=== PATIENT | female | born 1995 | race Caucasian/White ===

== ENCOUNTER → 2019-12-11 09:38 | Outpatient (BNVA) | payer OTHER, SELFPAY | PROVIDERS: PCP Internal Medicine; Referring Provider Internal Medicine; Visit Provider Advanced Practice Midwife | DX: Z76.89 Persons encountering health services in other specified circumstances (principal) ==

== ENCOUNTER 2020-01-23 09:34 | Outpatient (REF) | payer OTHER, SELFPAY | END 2020-01-23 09:35 | disposition home or self-care (01) | LOC: HO.LAB 09:34 | PROVIDERS: Visit Provider Advanced Practice Midwife | DX: Z39.2 Encounter for routine postpartum follow-up (principal); R10.9 Unspecified abdominal pain; Z30.09 Encounter for other general counseling and advice on contraception | CPT/HCPCS: 87086; 99212 ==

== ENCOUNTER → 2020-12-08 11:08 | Outpatient (BNVA) | payer OTHER, SELFPAY | PROVIDERS: Visit Provider Advanced Practice Midwife ==

== ENCOUNTER → 2021-01-05 14:28 | Outpatient (BNVA) | payer OTHER, SELFPAY | PROVIDERS: Visit Provider Advanced Practice Midwife | DX: Z30.017 Encounter for initial prescription of implantable subdermal contraceptive (principal) | CPT/HCPCS: 11981; 81025 ==

== ENCOUNTER 2021-03-07 11:07 | Emergency (ER) | payer OTHER, SELFPAY ==
[2021-03-07 11:31] VITALS: BP 94/61; PULSE 74; RESP 18; TEMP 36.2; O2SAT 95; BMI 31.8
== END 2021-03-07 15:36 | disposition left against medical advice (07) ==
PROVIDERS: Emergency Provider Emergency Medicine; PCP Internal Medicine
DX: M25.511 Pain in right shoulder (principal)
CPT/HCPCS: 99281; 99282

== ENCOUNTER → 2021-03-19 13:48 | Outpatient (BNVA) | payer OTHER, SELFPAY | PROVIDERS: PCP Internal Medicine; Visit Provider Advanced Practice Midwife | DX: Z30.40 Encounter for surveillance of contraceptives, unspecified (principal) | CPT/HCPCS: 99212 ==

== ENCOUNTER 2021-06-03 14:38 | Emergency (ER) | payer OTHER, SELFPAY ==
--- NOTE | ~2021-06-03 | CT_ITS ---
EXAMINATION: CT HEAD WITHOUT CONTRAST CLINICAL INFORMATION: Loss of consciousness, syncopal episode. COMPARISON: CT brain dated from 12/20/2011. TECHNIQUE: Contiguous axial imaging was performed from the skull base to vertex without intravenous administration of contrast. This CT examination was performed using dose optimization techniques as appropriate, variously including the following: *Automated exposure control *Adjustment of mA and/or kV according to patient size (this includes techniques or standardized protocols for targeted exams where dose is matched to indication/reason for exam; i.e. extremities or head) *Use of iterative reconstruction technique DLP: 587 mGy-cm FINDINGS: There is no evidence of acute intracranial hemorrhage or territorial infarction. No abnormal mass effect or midline shift is seen. Morgan to white matter differentiation is well preserved. No extra-axial fluid collections are identified. The ventricles are normal in size. There is no abnormal attenuation within the brain parenchyma. The osseous structures and soft tissues are normal. The mastoid air cells and visualized portions of the paranasal sinuses are well aerated. CT/CT head/brain wo con IMPRESSION: No acute intracranial pathology.
--- NOTE | ~2021-06-03 | XR_ITS ---
EXAMINATION: XR CHEST CLINICAL INFORMATION: Syncope COMPARISON: None TECHNIQUE: Frontal view of the chest was obtained. FINDINGS: No significant abnormality is noted involving the heart, lungs, mediastinum, bony thorax or soft tissues. XR/XR chest 1V IMPRESSION: Unremarkable chest examination.
[2021-06-03 15:46] VITALS: BP 118/64; PULSE 110; RESP 18; TEMP 37.1; O2SAT 97; BMI 30.8
--- NOTE | 2021-06-03 15:52 | ECG_ITS ---
Test Reason : syncope Blood Pressure : / mmHG Vent. Rate : 104 BPM Atrial Rate : 104 BPM P-R Int : 146 ms QRS Dur : 080 ms QT Int : 312 ms P-R-T Axes : 051 043 030 degrees QTc Int : 410 ms Sinus tachycardia Nonspecific ST and T wave abnormality Borderline ECG When compared with ECG of 13-MAY-2014 09:55, Nonspecific ST and T wave abnormality present Referred By: Generic ED Physician Electronically Signed By:VALE DAVENPORT
[2021-06-03 16:29] LABS: MANUAL DIFF FLAG NO
[2021-06-03 16:32] LABS: Basophils Percent Auto 0.3 % (0-2); Eosinophils Percent Auto 0.3 % (0-4); Hematocrit 41.7 % (37.0-47.0); Hemoglobin 14.1 g/dl (12.0-16.0); Imm Gran Abs Auto 0.03 X10*3/uL (0.00-0.03); Imm Gran Pct Auto 0.5 % (0.0-0.4); Lymphocytes Absolute Auto 0.5 X10*3/uL (1.2-4.9); Lymphocytes Percent Auto 7.9 % (20-40); Mean Corpuscular HGB Conc 33.8 g/dl (31.0-35.0); Mean Corpuscular Hemoglobin 30.5 pg (27.0-33.0); Mean Corpuscular Volume 90.3 fL (80.0-98.0); Mean Platelet Volume 10.7 fL (9.4-12.3); Monocytes Absolute Auto 0.6 X10*3/uL (0.1-1.2); Monocytes Percent Auto 9.4 % (2-11); Neutrophils Percent Auto 81.6 % (45-73); Platelet Count 241 X10*3/uL (160-400); Red Blood Count 4.62 X10*6/uL (4.20-5.50); Red Cell Distribution Width 13.7 % (11.0-16.0); White Blood Count 6.1 X10*3/uL (4.8-10.8)
[2021-06-03 16:48] LABS: Anion Gap 14 (12-20); Blood Urea Nitrogen 8 mg/dL (9-16); Calcium 9.4 mg/dL (8.4-10.2); Carbon Dioxide 23 mmol/L (22-29); Chloride 105 mmol/L (96-108); Creatinine Clr Calc Pharmacy 105.7; Estimated Glomerular Filt Rate > 60; Glucose Random 102 mg/dL (60-115); Sodium 138 mmol/L (135-145)
[2021-06-03 16:55] LABS: Troponin-I High Sensitivity < 3.5 ng/L (<3.5-17.0)
[2021-06-03 17:09] LABS: COVID-19 Test Negative (Negative); Influenza A Positive (Negative); Influenza B2 Negative (Negative)
--- NOTE | 2021-06-03 17:57 | ED_ITS ---
HPI - General Adult General Chief complaint: General Medical Stated complaint: Fever/Syncope Time Seen by Provider: 06/03/21 17:57 Source: patient Mode of arrival: ambulatory Limitations: no limitations History of Present Illness HPI narrative: This is a 26-year-old female presenting to the emergency department with fever, ear pain, syncopal episode, headache, malaise x3 days worsening. Patient tells me that her left ear has been bothering her. She has had a fever at home of 102 degrees F well controlled with Tylenol. She also reports that she had a syncopal episode with loss of consciousness and head strike today at work. She also reports generalized malaise. She tells me that she is experiencing a se carlos headache that does not feel like her typical headache. She tells me she has never had syncopal episodes before. She has had both her COVID and flu vaccine. She denies chest pain, shortness of breath, calf pain, leg swelling, nausea, vomiting, abdominal pain, neck pain, photophobia, vision changes, dizziness. Onset (ago): day(s) (3) Location: head Relieving factors: none Exacerbating factors: none Associated symptoms: denies other symptoms Treatments prior to arrival: other (Tylenol ) Related Data Home Medications Medication Instructions Recorded Confirmed etonogestrel 68 mg subdermal implant SUBDERMAL 03/19/21 implant (Nexplanon) Allergies Allergy/AdvReac Type Severity Reaction Status Date / Time No Known Allergies Allergy Verified 06/03/21 15:46 Review of Systems Review of Systems: Constitutional : No Weight loss, + Fever, + Chills, + Fati flavio, + Malaise ENT/Mouth : No sore throat, No Rhinorrhea, + L. ear pain Eyes: No Eye Pain, No Swelling, No Redness Cardiovascular : No Chest Pain, No SOB, No Dyspnea on Exertion, No Orthopnea, No Edema, No Palpitations Respiratory : No Cough, No Sputum, No Wheezing Gastrointestinal : No Nausea, No Vomiting, No Diarrhea, No Constipation, No abdominal Pain, No Hematochezia, No Melena Genitourinary : No Dysuria, No Urinary Frequency, No Hematuria, Musculoskeletal : No joint pain, No Myalgias, No Joint Swelling Skin : No Skin Lesions, No rash Neuro : No Weakness, No Numbness, No Dizziness, + Headache Psych : No Anxiety/Panic, No Depression All other systems reviewed and are negative Yes all other systems are reviewed and are negative [facility] Past Medical History Attestation statement: The following information was validated with the patient. Source: old records reviewed and nursing notes reviewed Medical History (Updated 06/03/21 @ 18:04 by NICK Patel) Anxiety Deaf Ear infection Febrile seizures Iron deficiency anemia Obesity (BMI 30.0-34.9) Surgical History No history of previous surgery Family History Family History Paternal Grandmother Diabetes mellitus HTN (hypertension) CVD (cardiovascular disease) Maternal Grandmother Diabetes mellitus HTN (hypertension) Skin cancer Father Diabetes mellitus HTN (hypertension) Maternal Aunt Diabetes mellitus HTN (hypertension) Social History Social History Housing: Apartment Alcohol intake: never Patient Tobacco Use Status: Former Tobacco user Tobacco use type: Cigarette e-Cigarette/Vaping Use: Never Used Second Hand Smoke Exposure: No Advance Directives: No Advance Directives Information Provided: No Patient : No service: No Current occupational status: employed Current occupational exposures/hazards: No Gender identity: Female Physical Exam ED Vital Signs: Vital Signs - 24 hr 06/03/21 15:46 06/03/21 19:17 06/03/21 19:18 Temperature 98.7 F Pulse Rate 110 H 92 97 Respiratory Rate 18 Blood Pressure 118/64 103/61 114/71 Pulse Oximetry 97 06/03/21 19:19 Temperature Pulse Rate 97 Respiratory Rate Blood Pressure 116/72 Pulse Oximetry BMI result Body Mass Index 30.8 VSS Appearance: Alert.? Oriented X3.? No acute distress.? Head: Normocephalic, atraumatic, no step-offs or deformities Eyes: Pupils equal, round and reactive to light.? ENT: Pharynx normal.? Bilateral tympanic membranes pearly white, normal landmarks. No effusions, edema. No pain with manipulation of external ear. Neck: Normal inspection.? Neck supple.? CVS: Normal heart rate and rhythm.? Pulses normal.? Respiratory: No respiratory distress.? Breath sounds normal.? Abdomen: Soft and nontender.? Skin: Skin warm and dry.? Normal skin color.? Normal skin turgor.? Extremities: No lower extremity edema.? No calf ttp. 5/5 strength to bilateral upper and lower extremities Back: No midline tenderness, no C-spine tenderness, full range of motion, no CVA tenderness bilaterally Neuro: Oriented X 3.? No motor deficit.? No sensory deficit. CN 2-12 intact. No small [id number], [id number], normal tandem gait with normal coordination. Negative pr negative Brudzinski, no meningeal signs present. Course Reevaluation(s) Reevaluation #1: Patient's CBC within normal limits. Chemistry with no acute electrolyte abnormalities. Troponin negative. EKG nonischemic, unlikely ACS. COVID negative. Influenza A positive. Chest x-ray within normal limits no evidence of pneumonia or viral processes occurring. Time: 18:02 Reevaluation #2: Patient had CT within normal limits. Patient has been hydrated with IV fluids. She has been in good spirits. No syncopal episodes. She is afebrile. At this time patient will be discharged home patient's symptoms likely secondary to influenza. At this time patient will be discharged with strict return precautions. Advised her to return with new or worrisome signs and symptoms. Time: 19:[address] [facility] Narrative Medical decision making narrative: 1800 26-year-old female presenting with flu-like symptoms, headache that doesnt feel like her typical X3 days and a syncopal episode today. Physical examination benign. Vital signs stable patient is afebrile however she did take Tylenol prior to her arrival. Neuro nonfocal. Cerebellar function intact unlikely posterior stroke. No meningeal signs unlikely meningitis. Plan at this time is labs, orthostatic vital signs, urine, fluids, EKG, chest x- ray, head CT Will rule out COVID, influenza, pneumonia, dysrhythmias, electrolyte abnormalities. ICH/masses. Medical Records Medical records reviewed: Yes I reviewed the patient's medical records. Lab Data Lab results reviewed: Yes I reviewed the patient's lab results. Result diagrams: 06/03/21 16:24 06/03/21 16:24 Labs: Lab Results 06/03/21 06/03/21 06/03/21 Range/Units 16:24 16:24 16:24 WBC 6.1 (4.8-10.8) X10*3/uL RBC 4.62 (4.20-5.50) X10*6/uL Hgb 14.1 (12.0-16.0) g/dl Hct 41.7 (37.0-47.0) % MCV 90.3 (80.0-98.0) fL MCH 30.5 (27.0-33.0) pg MCHC 33.8 (31.0-35.0) g/dl RDW 13.7 (11.0-16.0) % Plt Count 241 (160-400) X10*3/uL MPV 10.7 (9.4-12.3) fL Immature Gran % (Auto) 0.5 H (0.0-0.4) % Neut % (Auto) 81.6 H (45-73) % Lymph % (Auto) 7.9 L (20-40) % Hudspeth % (Auto) 9.4 (2-11) % Eos % (Auto) 0.3 (0-4) % Baso % (Auto) 0.3 (0-2) % Lymph # (Auto) 0.5 L (1.2-4.9) X10*3/uL Hudspeth # (Auto) 0.6 (0.1-1.2) X10*3/uL Eos # (Auto) 0.0 (0.0-0.4) X10*3/uL Baso # (Auto) 0.0 (0.0-0.2) X10*3/uL Abs Immat Gran (auto) 0.03 (0.00-0.03) X10*3/uL Absolute Neuts (auto) 5.0 (2.0-8.3) x10*3/uL Absolute Nucleated RBC 0.000 (0.0-0.012) X10*3/uL Nucleated RBC % (auto) 0.0 (0.0-0.2) /100WBC Sodium 138 (135-145) mmol/L Potassium 4.0 (3.3-5.1) mmol/L Chloride 105 (96-108) mmol/L Carbon Dioxide 23 (22-29) mmol/L Anion Gap 14 (12-20) BUN 8 L (9-16) mg/dL Creatinine 0.81 (0.5-1.4) mg/dL Estim Creat Clear Calc 105.7 Estimated GFR > 60 Random Glucose 102 (60-115) mg/dL Calcium 9.4 (8.4-10.2) mg/dL Troponin I High Sens < 3.5 (<3.5-17.0) ng/L COVID-19 ([facility]) (Negative) COVID-19 Clin Com Influenza Type A ([facility]) (Negative) Influenza Type B ([facility]) (Negative) Influenza A & B Note 06/03/21 06/03/21 Range/Units 16:24 16:24 WBC (4.8-10.8) X10*3/uL RBC (4.20-5.50) X10*6/uL Hgb (12.0-16.0) g/dl Hct (37.0-47.0) % MCV (80.0-98.0) fL MCH (27.0-33.0) pg MCHC (31.0-35.0) g/dl RDW (11.0-16.0) % Plt Count (160-400) X10*3/uL MPV (9.4-12.3) fL Immature Gran % (Auto) (0.0-0.4) % Neut % (Auto) (45-73) % Lymph % (Auto) (20-40) % Hudspeth % (Auto) (2-11) % Eos % (Auto) (0-4) % Baso % (Auto) (0-2) % Lymph # (Auto) (1.2-4.9) X10*3/uL Hudspeth # (Auto) (0.1-1.2) X10*3/uL Eos # (Auto) (0.0-0.4) X10*3/uL Baso # (Auto) (0.0-0.2) X10*3/uL Abs Immat Gran (auto) (0.00-0.03) X10*3/uL Absolute Neuts (auto) (2.0-8.3) x10*3/uL Absolute Nucleated RBC (0.0-0.012) X10*3/uL Nucleated RBC % (auto) (0.0-0.2) /100WBC Sodium (135-145) mmol/L Potassium (3.3-5.1) mmol/L Chloride (96-108) mmol/L Carbon Dioxide (22-29) mmol/L Anion Gap (12-20) BUN (9-16) mg/dL Creatinine (0.5-1.4) mg/dL Estim Creat Clear Calc Estimated GFR Random Glucose (60-115) mg/dL Calcium (8.4-10.2) mg/dL Troponin I High Sens (<3.5-17.0) ng/L COVID-19 ([facility]) Negative (Negative) COVID-19 Clin Com See Note Influenza Type A ([facility]) Positive A (Negative) Influenza Type B ([facility]) Negative (Negative) Influenza A & B Note See Note ECG Data Attestation: I personally reviewed and interpreted this ECG as follows: Prior ECG tracings: not available for review Interpretation: Ventricular rate of 104, DC normal, QRS normal, QT/QTC normal. EKG shows sinus tachycardia no ST elevations or inversions. No signs of acute ischemia. No previous to compare with. Critical Care Time Critical Care Time Critical Care Time: No Discharge Plan Discharge Clinical Impression: Influenza A, Syncope Patient Disposition: Home, Self-Care Instructions: Syncope (ED), Influenza (ED) Additional Instructions: Take your medications as prescribed. If you were prescribed antibiotics today, it is important that you take your medication to their entirety, do not skip any doses, do not finish them early. Follow-up with your primary care provider this week. Return to the emergency department with new or worsening symptoms. Such as fevers, chills, chest pain, shortness of breath, nausea, vomiting, dizziness, headache, vision changes, lethargy In case of emergency call 911 Take ibuprofen every 6 hours, Tylenol every 4 as needed for body aches, fevers or pains. Prescriptions: No Action Nexplanon 68 mg implant subdermal 0RF Referrals: Marizol Reilly MD [Primary Care Provider] - 2 days Stand Alone Forms: Work/School Release
[2021-06-03] MEDS: 0.9 % Sodium Chloride 1,000 ML 999 ML IV (19:12)
[2021-06-03 19:17] VITALS: BP 103/61; PULSE 92
[2021-06-03 19:18] VITALS: BP 114/71; PULSE 97
[2021-06-03 19:19] VITALS: BP 116/72; PULSE 97
[2021-06-03 20:28] LABS: Appearance Urine CLEAR; Color Urine YELLOW; Glucose Urine UA NEG (NEG); Leukocyte Esterase Urine NEG (NEG); Nitrite Urine NEG (NEG); PH 5.5 (5.0-8.0); Specific Gravity - Urine >= 1.030 (1.005-1.025); UACC Culture Trigger NO; Urine Blood 1+ (NEG); Urine Ketones NEG (NEG); Urine Protein NEG (NEG-TRACE)
[2021-06-03 20:37] LABS: Bacteria Urine TRACE /LPF; Squamous Epithelial Cell Urine TRACE /LPF; WBC Urine 0 /HPF (0-4)
== END 2021-06-03 20:40 | disposition home or self-care (01) ==
PROVIDERS: Physician Assistant; Emergency Provider Internal Medicine; PCP Internal Medicine
DX: J11.1 Influenza due to unidentified influenza virus with other respiratory manifestations (principal); R55 Syncope and collapse; Z20.822 Contact with and (suspected) exposure to COVID-19; R51.9 Headache, unspecified
CPT/HCPCS: 36415; 70450; 71045; 80048; 81001; 84484; 85025; 87502; 87635; 93005; 96360; 99284

== ENCOUNTER 2021-08-18 10:18 | Outpatient (REF) | payer OTHER, SELFPAY ==
[2021-08-18 15:59] LABS: CT PCR NOT DETECTED (Not Detect.); NG PCR NOT DETECTED (Not Detect.)
[2021-08-19 08:22] LABS: BV Int Neg Control Negative (Negative); BV Int Pos Control Positive (Positive)
== END 2021-08-18 10:19 | disposition home or self-care (01) ==
LOC: HO.LAB 10:18
PROVIDERS: Visit Provider Advanced Practice Midwife
DX: Z01.419 Encounter for gynecological examination (general) (routine) without abnormal findings (principal); Z11.3 Encounter for screening for infections with a predominantly sexual mode of transmission
CPT/HCPCS: 87480; 87491; 87510; 87591; 87660; 88142

== ENCOUNTER 2021-10-25 16:10 | Outpatient (REF) | payer OTHER, SELFPAY ==
[2021-10-26 13:20] LABS: H Pylori Breath Test Negative (Negative)
== END 2021-10-25 16:11 | disposition home or self-care (01) ==
LOC: HO.LNP 16:10
PROVIDERS: Visit Provider Physician Assistant
DX: A04.8 Other specified bacterial intestinal infections (principal); R10.9 Unspecified abdominal pain; R11.2 Nausea with vomiting, unspecified; K58.9 Irritable bowel syndrome, unspecified
CPT/HCPCS: 83013; 99202; 99212

== ENCOUNTER → 2021-12-06 14:08 | Outpatient (BNVA) | payer OTHER, SELFPAY | PROVIDERS: PCP Internal Medicine; Referring Provider Internal Medicine; Visit Provider Physician Assistant | DX: K58.9 Irritable bowel syndrome, unspecified (principal); R19.7 Diarrhea, unspecified | CPT/HCPCS: 99212 ==

== ENCOUNTER 2022-01-20 08:15 | Outpatient (REF) | payer OTHER, SELFPAY ==
--- NOTE | ~2022-01-20 | US_ITS ---
EXAMINATION: US ABDOMEN COMPLETE CLINICAL INFORMATION: Irritable bowel syndrome without diarrhea. COMPARISON: CT abdomen and pelvis 07/27/2013. TECHNIQUE: Real-time imaging of the abdominal viscera. FINDINGS: PANCREAS: Normal. ABDOMINAL AORTA: The proximal, mid, and distal segments are normal in caliber. INFERIOR VENA CAVA: Visualized portions are normal. LIVER: The liver is normal in size. The liver contour is normal. Liver echotexture is increased. No focal hepatic lesion. There is no intrahepatic biliary duct dilatation seen. GALLBLADDER: Normal. The gallbladder is physiologically distended without evidence of stones, sludge, polyps, wall thickening or pericholecystic fluid. COMMON BILE DUCT: Normal in caliber measuring 0.4 cm in diameter. RIGHT KIDNEY: Normal. No hydronephrosis. No renal calculi or focal parenchymal lesions. The kidney measures 10.3 cm in maximum dimension. LEFT KIDNEY: Normal. No hydronephrosis. No renal calculi or focal parenchymal lesions. The kidney measures 10.3 cm in maximum dimension. SPLEEN: Normal. The spleen measures 8.9 cm in maximum dimension. FREE FLUID: None. US/US abdomen complete IMPRESSION: Echogenic liver probably represent fatty infiltration.
== END 2022-01-20 08:16 | disposition home or self-care (01) ==
LOC: HO.US 08:15
PROVIDERS: Visit Provider Physician Assistant
DX: R10.9 Unspecified abdominal pain (principal); K58.9 Irritable bowel syndrome, unspecified
CPT/HCPCS: 76700

== ENCOUNTER 2022-05-29 14:39 | Emergency (ER) | payer OTHER, SELFPAY ==
--- NOTE | ~2022-05-29 | XR_ITS ---
EXAMINATION: XR WRIST, RIGHT XR HAND, RIGHT CLINICAL INFORMATION: Wrist pain, heard a pop. COMPARISON: Radiograph of the right hand 07/17/2016. TECHNIQUE: PA, lateral, and oblique views of the right wrist and PA, lateral, and oblique views of the right hand FINDINGS: RIGHT WRIST: The bones and soft tissues are normal. No fracture. Alignment is anatomic. Joint spaces are maintained. No erosions or soft tissue calcifications. RIGHT HAND: The bones and soft tissues are normal. No fracture. Alignment is anatomic. Joint spaces are maintained. No erosions or soft tissue calcifications. XR/XR hand wrist RT IMPRESSION: Normal right hand and wrist. If symptoms persist, consider an interval radiograph or correlation with an MRI, as early nondisplaced fractures and ligamentous injuries can be radiographically occult.
[2022-05-29 15:48] VITALS: BP 151/75; PULSE 72; RESP 15; TEMP 36.8; O2SAT 100; BMI 31.9
--- NOTE | 2022-05-29 15:52 | ED.GENADULT ---
HPI - General Adult General Chief complaint: Extremity Injury, Upper <NICK Arriaza - Last Filed: 05/30/22 11:58> Stated complaint: R wrist pain <NICK Arriaza - Last Filed: 05/30/22 11:58> Time Seen by Provider: 05/29/22 17:51 <NICK Arriaza - Last Filed: 05/30/22 11:58> Source: patient <NICK Junior - Last Filed: 05/29/22 18:19> Mode of arrival: ambulatory <NICK Junior - Last Filed: 05/29/22 18:19> Limitations: no limitations <NICK Junior Last Filed: 05/29/22 18:19> History of Present Illness HPI narrative: 27-year-old female who works at a [employer] is presenting to the ER with complaints of right wrist pain after she was reaching for a pencil today and heard a pop and she has been having like a shooting pain. Reports it is worse when she bends her wrist upper down. Feels like her strength has decreased. Otherwise she denies any dizziness, headaches, neck pain/stiffness, paresthesias, recent falls or trauma, extremity edema, chest pain or shortness of breath, dyspnea on exertion, rashes or any other symptoms complaints or concerns at this time. <NICK Junior - Last Filed: 05/29/22 18:19> MD complaint: Right wrist pain <NICK Junior - Last Filed: 05/29/22 18:19> Onset (ago): day(s) (Yesterday) <NICK Junior Last Filed: 05/29/22 18:19> Related Data Home medications: Home Medications Medication Instructions Recorded Confirmed etonogestrel 68 mg subdermal implant subdermal 03/19/21 10/06/21 implant (Nexplanon) Previous Rx's Medication Instructions Recorded methylcellulose (laxative) 500 mg 500 mg PO TID #90 tabs 10/25/21 tablet (Citrucel) loperamide 2 mg capsule (Imodium 2 mg PO Q6H PRN loose stool #30 12/06/21 A-D) caps pantoprazole 40 mg tablet,delayed 40 mg PO DAILY 30 days #30 tabs 12/06/21 release acetaminophen 300 mg-codeine 30 mg 1 tab PO Q8H PRN pain #14 tabs 05/29/22 tablet ibuprofen 800 mg tablet 800 mg PO Q8H PRN pain #14 tabs 05/29/22 prednisone 20 mg tablet 40 mg PO DAILY inflammation 5 days 05/29/22 #10 tabs <NICK Arriaza - Last Filed: 05/30/22 11:58> Allergies/adverse reactions: Allergies Allergy/AdvReac Type Severity Reaction Status Date / Time No Known Allergies Allergy Verified 12/06/21 14:14 <NICK Arriaza - Last Filed: 05/30/22 11:58> Review of Systems Review of Systems: Constitutional : No Weight loss, No Fever, No Chills, No Night Sweats, No Fatigue, No Malaise ENT/Mouth : No Hearing loss, No Ear Pain, No Nasal Congestion, No Sinus Pain, No Hoarseness, No sore throat, No Rhinorrhea, No Swallowing Difficulty Eyes: No Eye Pain, No Swelling, No Redness, No Foreign Body, No Discharge, No Vision Changes Cardiovascular : No Chest Pain, No SOB, No Dyspnea on Exertion, No Orthopnea, No Edema, No Palpitations Respiratory : No Cough, No Sputum, No Wheezing, No Smoke Exposure, No Dyspnea Gastrointestinal : No Nausea, No Vomiting, No Diarrhea, No Constipation, No abdominal Pain, No Hematochezia, No Melena Genitourinary : no irregular bleeding, No Dysuria, No Urinary Frequency, No Hematuria, No Urinary Incontinence, No Urgency, No Flank Pain, No Urinary Flow Changes, No Hesitancy Musculoskeletal : + right wirst joint pain, No Myalgias, No Joint Swelling Skin : No Skin Lesions, No rash Neuro : No Weakness, No Numbness, No Paresthesias, No Loss of Consciousness, No Dizziness, No Headache Psych : No Anxiety/Panic, No Depression, No SI/HI/AH/VH, No Social Issues, Heme/Lymph: No Bruising, No Bleeding,No Lymphadenopathy Endocrine : No Polyuria, No Polydipsia, No Temperature Intolerance <NICK Junior Last Filed: 05/29/22 18:19> Yes all other systems are reviewed and are negative <NICK Junior Last Filed: 05/29/22 18:19> [facility] Past Medical History Attestation statement: The following information was validated with the patient. <NICK Junior - Last Filed: 05/29/22 18:19> Source: old records reviewed and nursing notes reviewed <NICK Junior - Last Filed: 05/29/22 18:19> Medical History: Medical History Anxiety Deaf Ear infection Febrile seizures Iron deficiency anemia Obesity (BMI 30.0-34.9) <NICK Arriaza - Last Filed: 05/30/22 11:58> Surgical History: Surgical History No history of previous surgery <NICK Arriaza - Last Filed: 05/30/22 11:58> Family History Family History: Family History Paternal Grandmother Diabetes mellitus HTN (hypertension) CVD (cardiovascular disease) Maternal Grandmother Diabetes mellitus HTN (hypertension) Skin cancer Father Diabetes mellitus HTN (hypertension) Maternal Aunt Diabetes mellitus HTN (hypertension) Mother Thyroid disease <NICK Arriaza - Last Filed: 05/30/22 11:58> Social History Social History: Social History Housing: Apartment Alcohol intake: never Patient Tobacco Use Status: Former Tobacco user Tobacco use type: Cigarette e-Cigarette/Vaping Use: Never Used Second Hand Smoke Exposure: No Advance Directives: No Advance Directives Information Provided: Yes service: No Current occupational status: employed Current occupational exposures/hazards: No Gender identity: Female Cognitive needs: No Hearing needs: No Vision needs: Yes <NICK Arriaza - Last Filed: 05/30/22 11:58> Physical Exam ED Vital Signs: Vital Signs - 24 hr 05/29/22 15:48 Temperature 98.2 F Pulse Rate 72 Respiratory Rate 15 Blood Pressure 151/75 H Pulse Oximetry 100 Oxygen Delivery Method Room Air BMI result Body Mass Index 31.9 <NICK Arriaza - Last Filed: 05/30/22 11:58> Vital Signs - 24 hr 05/29/22 15:48 Temperature 98.2 F Pulse Rate 72 Respiratory Rate 15 Blood Pressure 151/75 H Pulse Oximetry 100 Oxygen Delivery Method Room Air BMI result Body Mass Index 31.9 vital signs have been reviewed as normal and appeared to be correct. Blood pressure normal. Heart rate normal. Respiration rate normal. Temperature normal. Oxygen saturation normal. <NICK Junior - Last Filed: 05/29/22 18:19> Appearance: Alert. Oriented X3. No acute distress. Head: Normal external exam. Normocephalic. Atraumatic. Eyes: PERRLA. EOMI. Conjunctiva and sclera normal. Eyelids normal. ENT: Pharynx normal. Uvula midline. Moist mucous membranes. Normal voice. No trismus noted. No drooling noted. No muffled voice noted. Neck: Normal inspection. Neck supple. FROM. No adenopathy. No meningeal signs. CVS: Normal heart rate and rhythm. Heart sound normal. Pulses normal throughout. No murmurs/rales/gallops. Respiratory: No respiratory distress. Painless inspiration. Breath sounds normal. No wheezes/rales/rhonchi noted. Chest nontender. No crepitus is noted. No signs of trauma noted. No accessory muscle usage noted or decreased air movement noted. No signs of trauma. Back: Full range of motion noted. Skin: Skin warm and dry. Normal skin color. Normal skin turgor. No rashes/lesions/lacerations noted. Extremities: Patient with tenderness palpation at the volar aspect of the wrist. Positive phalen's and prayers test. Otherwise all other Extremities exhibit normal range of motion and nontender. There is no extremity edema. Neuro: Oriented X 3. No motor deficit. No sensory deficit. Reflexes normal. Normal steady gait. No focal neuro deficits noted. CN's II-XII intact bilaterally? Vascular: + radial pulses/+ 2 distal pedal pulses/+2 dorsalis pedis b/l. Normal cap refill. No cyanosis noted to upper extremity nails and lower extremity toes nails. <NICK Junior - Last Filed: 05/29/22 18:19> Course Course Course Narrative: RME: 27 yold female presents to the ED for right wrist pain after recahing for a pencil. patient heard pop in right wrist .patient state right wrist pain on movement of wrists and holding object. patient denies any blunt trauma, swelling, or redss. Neuro and vacscular exam is intact. Motor exam of fingers/arm is normal. movment of wrist intact, but with pain. Right wirst xray ordered <NICK Arriaza - Last Filed: 05/30/22 11:58> Reevaluation(s) Reevaluation #1: Patient most likely carpal tunnel versus tendinitis of the right wrist. ?No Deform; No Lig laxity; No STS; Skin intact; No Dorsal tender; No Volar tender; No Scaphoid tender; No Triquetrum tender; No Lunate tender; 2+ DPs, CR < 2 secs; Nl Motor; Nl Sensory exam. Not consistent with fracture. Not consistent with DVT. Not consistent with septic joint. X-ray obtained and negative for any acute processes. Will place and in a wrist splint treat symptomatically and instructed follow-up with PCP and to return if any new or worsening symptoms. Patient understands agrees with this plan. <NICK Junior - Last Filed: 05/29/22 18:19> Medical Decision Making Independent Interpretation I performed an independent interpretation of an: Plain X-Ray (X-ray of right wrist reviewed by myself agreeable radiologist report) <NICK Junior - Last Filed: 05/29/22 18:19> Radiology Impression Discussion of test interpretation with radiology: I have reviewed the radiologist's reading. <NICK Junior - Last Filed: 05/29/22 18:19> Radiologist Impression: FINDINGS: RIGHT WRIST: The bones and soft tissues are normal. No fracture. Alignment is anatomic. Joint spaces are maintained. No erosions or soft tissue calcifications.? RIGHT HAND: The bones and soft tissues are normal. No fracture. Alignment is anatomic. Joint spaces are maintained. No erosions or soft tissue calcifications.? XR/XR hand wrist RT IMPRESSION: Normal right hand and wrist. If symptoms persist, consider an interval radiograph or correlation with an MRI, as early nondisplaced fractures and ligamentous injuries can be radiographically occult. <NICK Junior Last Filed: 05/29/22 18:19> Discharge Plan Discharge Clinical Impression: Right wrist tendinitis <NICK Arriaza Last Filed: 05/30/22 11:58> Patient Disposition: Home, Self-Care <NICK Arriaza - Last Filed: 05/30/22 11:58> Instructions: Tendinitis (ED) <NICK Arriaza - Last Filed: 05/30/22 11:58> Prescriptions: New prednisone 20 mg tablet 40 mg PO DAILY 5 Days Qty: 10 0RF acetaminophen-codeine 300-30 mg tablet 1 tab PO Q8H PRN (Reason: pain) Qty: 14 0RF ibuprofen 800 mg tablet 800 mg PO Q8H PRN (Reason: pain) Qty: 14 0RF No Action Nexplanon 68 mg implant subdermal Citrucel 500 mg tablet 500 mg PO TID Qty: 90 5RF pantoprazole 40 mg tablet,delayed release (DR/EC) 40 mg PO DAILY 30 Days Qty: 30 11RF loperamide [Imodium A-D] 2 mg capsule 2 mg PO Q6H PRN (Reason: loose stool) Qty: 30 2RF Rx Instructions: Take 2 cap after 1st loose stool- One caplet after each subsequent loose stools No more than 4 caps in a 24 hour. <NICK Arriaza - Last Filed: 05/30/22 11:58> Referrals: Marizol Reilly MD [Primary Care Provider] - 2 days <NICK Arriaza - Last Filed: 05/30/22 11:58> Stand Alone Forms: Work/School Release <NICK Arriaza - Last Filed: 05/30/22 11:58> Interventions: ED Discharge Assessment Last Done: 05/29/22 18:35 <NICK Arriaza - Last Filed: 05/30/22 11:58> Discharge Date/Time: 05/29/22 18:35 <NICK Arriaza - Last Filed: 05/30/22 11:58>
== END 2022-05-29 18:35 | disposition home or self-care (01) ==
PROVIDERS: Emergency Provider Internal Medicine; PCP Internal Medicine
DX: M65.231 Calcific tendinitis, right forearm (principal); M25.531 Pain in right wrist; M79.641 Pain in right hand; Z79.899 Other long term (current) drug therapy; Z87.891 Personal history of nicotine dependence
CPT/HCPCS: 29125; 73110; 73130; 99282; 99283

== ENCOUNTER 2022-08-22 08:57 | Outpatient (REF) | payer OTHER, SELFPAY ==
[2022-08-23 07:06] LABS: CT PCR NOT DETECTED (Not Detect.); NG PCR NOT DETECTED (Not Detect.)
[2022-08-23 11:18] LABS: BV Int Neg Control Negative (Negative); BV Int Pos Control Positive (Positive)
== END 2022-08-22 08:58 | disposition home or self-care (01) ==
LOC: HO.LNP 08:57
PROVIDERS: PCP Internal Medicine; Visit Provider Advanced Practice Midwife
DX: Z20.2 Contact with and (suspected) exposure to infections with a predominantly sexual mode of transmission (principal); F33.1 Major depressive disorder, recurrent, moderate; F43.10 Post-traumatic stress disorder, unspecified
CPT/HCPCS: 0353U; 87480; 87510; 87660

== ENCOUNTER 2022-10-12 10:38 | Emergency (ER) | payer OTHER, SELFPAY ==
--- NOTE | ~2022-10-12 | CT_ITS ---
EXAMINATION: CT ABDOMEN AND PELVIS WITH CONTRAST CLINICAL INFORMATION: Periumbilical pain. COMPARISON: CT scan of the abdomen and pelvis dated 07/27/2013. TECHNIQUE: Multidetector volumetric images were obtained from the superior aspect of the liver through the pubic symphysis following administration 85 mL of Omnipaque 350 intravenous contrast. Sagittal and coronal reformatted images were obtained on the technologist's workstation. Oral contrast: No This CT examination was performed using dose optimization techniques as appropriate, variously including the following: *Automated exposure control *Adjustment of mA and/or kV according to patient size (this includes techniques or standardized protocols for targeted exams where dose is matched to indication/reason for exam; i.e. extremities or head) *Use of iterative reconstruction technique DLP: 621 mGy-cm FINDINGS: LUNG BASES: The visualized lung bases are unremarkable. Interval decrease in breast density with right breast retroareolar ovoid nodular density measuring 1.2 cm (image 8, series 3). LIVER, GALLBLADDER, AND BILIARY TREE: No hepatic abnormality. Small low-attenuation focus in the right lobe posteriorly measures 0.7 cm (image 25, series 3). PANCREAS: Unremarkable. SPLEEN: Unremarkable. ADRENAL GLANDS: Unremarkable. KIDNEYS AND URETERS: The kidneys are normal in size, shape, and attenuation. No hydronephrosis, hydroureter, or calculi seen. No perinephric stranding. BLADDER: Unremarkable. GASTROINTESTINAL TRACT: The stomach, small bowel and appendix are unremarkable. The colon and rectum are unremarkable. ABDOMINAL WALL: No significant hernia is appreciated. LYMPH NODES: No lymphadenopathy. VASCULAR: Unremarkable. PELVIC VISCERA: Anteverted and retroflexed uterus. No adnexal abnormality. OSSEOUS STRUCTURES: Unremarkable. CT/CT abdomen pelvis w IV con IMPRESSION: 1. No acute intra-abdominal/pelvic abnormality to explain the patient's symptoms. 2. Interval decrease in breast density with right breast retroareolar ovoid nodular density. This is nonspecific, but could represent a fibroadenoma. Correlate with breast imaging. 3. Small low-attenuation focus in the right hepatic lobe is too small adequately characterize, but demonstrates benign features and likely represents a small cyst. No follow-up recommended at this time.
[2022-10-12 10:51] VITALS: BP 110/66; PULSE 76; RESP 18; TEMP 36.8; O2SAT 99; BMI 26.0
--- NOTE | 2022-10-12 11:21 | ED_ITS ---
HPI - Nausea/Vomiting/Diarrhea General Chief complaint: Nausea/Vomiting/Diarrhea Stated complaint: Nausea, Abd bloated Time Seen by Provider: 10/12/22 12:01 Source: patient Mode of arrival: ambulatory History of Present Illness HPI Narrative: 27-year-old female with presentation periumbilical discomfort and distension and pain that is described as intermittent and then has become constant and sharp with nausea, vomiting, diarrhea as well as urinary frequency and chills. She denies any surgical history within the abdomen and states her last bowel movement was this morning. Related Data Home Medications Medication Instructions Recorded Confirmed etonogestrel 68 mg subdermal implant subdermal 03/19/21 08/22/22 implant (Nexplanon) Allergies Allergy/AdvReac Type Severity Reaction Status Date / Time No Known Allergies Allergy Verified 10/12/22 10:51 Review of Systems Review of Systems: Pertinent positives and negatives as stated in HPI PMFSH Past Medical History Source: nursing notes reviewed Medical History Anxiety Deaf Ear infection Febrile seizures Iron deficiency anemia Obesity (BMI 30.0-34.9) Surgical History No history of previous surgery Family History Family History Paternal Grandmother Diabetes mellitus HTN (hypertension) CVD (cardiovascular disease) Maternal Grandmother Diabetes mellitus HTN (hypertension) Skin cancer Father Diabetes mellitus HTN (hypertension) Maternal Aunt Diabetes mellitus HTN (hypertension) Breast CA Mother Thyroid disease Social History Social History Housing: Apartment Alcohol intake: never Patient Tobacco Use Status: Former Tobacco user Tobacco use type: Cigarette Smoked in Last 30 Days: No e-Cigarette/Vaping Use: Never Used Second Hand Smoke Exposure: No Advance Directives: No service: No Current occupational status: employed Current occupational exposures/hazards: No Gender identity: Female Cognitive needs: No Hearing needs: No Vision needs: Yes Physical Exam Vital Signs: Vital Signs: Last Vital Signs Temp 98.7 F 10/12/22 12:36 Pulse 66 10/12/22 12:36 Resp 16 10/12/22 12:36 BP 105/61 10/12/22 12:36 Pulse Ox 97 10/12/22 12:36 O2 Del Method Room Air 10/12/22 12:36 BMI result Body Mass Index 26.0 VITAL SIGNS: Reviewed. GENERAL: Well developed, well nourished, in no acute distress. HEAD: Normocephalic/atraumatic EYES: PERRLA, EOMI EARS: Ext canals without abnormality NOSE: Nares patent bilateral OROPHARYNX: no oral lesions noted, posterior pharynx clear NECK: Supple, no adenopathy LUNGS: Normal breath sounds. No adventitious sounds or accessory muscle use. SpO2<99> CARDIOVASCULAR: Regular rate and rhythm without noted murmurs ABDOMEN: Soft, minimal lower abdominal discomfort, pain is primarily in mid supr aumbilical area, no signs of peritonitis, non-distended with bowel sounds. MUSCULOSKELETAL: No tenderness, deformities, or effusions noted on gross inspection. EXTREMITIES: No cyanosis, clubbing or edema. SKIN: Inspection of the skin reveals no rashes NEUROLOGIC: Alert and oriented x 4. Strength and sensation to light touch were grossly intact x 4. Course Course Course Narrative: RME - 27 yo female presenting to the ER for evaluation of N/V/D and abdominal bloating w/ epigastric pain that started yesterday. Symptoms worse today. Plan: labs, UA, Upreg Medications Administered Discontinued Medications Generic Name Dose Route Start Last Admin Trade Name Fredrick PRN Reason Stop Dose Admin Iohexol 85 ml 10/12/22 13:08 10/12/22 13:08 Iohexol 350 Mg/Ml 100 Ml Infus..Btl IV 10/12/22 13:09 85 ml ONCE ONE Administration Ketorolac Tromethamine 15 mg 10/12/22 12:09 10/12/22 12:22 Ketorolac Tromethamine 30 Mg/Ml Vial IVPUSH 10/12/22 12:10 15 mg ONCE ONE Administration Lidocaine/Diphenhydr/Alum/Mg/Simeth 10 ml 10/12/22 14:57 10/12/22 15:19 Mag&Al/Sim/Diphenhyd/Lidocaine 10 Ml Oral.Susp PO 10/12/22 14:58 10 ml ONCE ONE Administration Protocol Ondansetron HCl 4 mg 10/12/22 12:09 10/12/22 12:22 Ondansetron Hcl 4 Mg/2 Ml Vial IVPUSH 08/09/23 12:10 4 mg ONCE ONE Administration Medical Decision Making Medical Decision Making [facility] Narrative: 1212: 27-year-old female with history and clinical presentation, DDX: Cholecystitis, gastritis, pancreatitis, less likely felt to be SBO/diverticulitis. I reviewed all investigations and hematologic indices are negative for leukocytosis, left shift, anemia, or thrombocytopenia. Chemistry indices demonstrate slight bump in total bilirubin, negative beta hCG and otherwise no evidence of electrolyte abnormalities or OBINNA. CT abdomen in conjunction with lipase levels negative for pancreatitis, and otherwise my interpretation is in agreement with radiology's impression. I have reviewed all previous documentation on the patient and given the current workup, history, and clinical findings my interpretation is as patient suffers from IBS, did provide patient with a GI cocktail for additional symptom relief and she was strongly encouraged to follow-up with her primary care provider for further outpatient management. She has remained hemodynamically stable throughout Differential Diagnosis Differential Diagnoses: The differential diagnosis associated with the presentation includes Please see the discussion above Admission/Observation Consideration of admission/observation: Escalation of care including admission/observation considered Please see the discussion above Lab Data [facility] Lab Attestation statement: I reviewed the patient's lab results. Please see the discussion above 10/12/22 11:27 10/12/22 11:27 Labs: Lab Results 10/12/22 10/12/22 Range/Units 11:27 11:27 WBC 9.1 (4.8-10.8) X10*3/uL RBC 5.01 (4.20-5.50) X10*6/uL Hgb 14.2 (12.0-16.0) g/dl Hct 44.3 (37.0-47.0) % MCV 88.4 (80.0-98.0) fL MCH 28.3 (27.0-33.0) pg MCHC 32.1 (31.0-35.0) g/dl RDW 12.3 (11.0-16.0) % Plt Count 310 D (160-400) X10*3/uL MPV 10.6 (9.4-12.3) fL Immature Gran % (Auto) 0.4 (0.0-0.4) % Neut % (Auto) 72.8 (45-73) % Lymph % (Auto) 20.7 (20-40) % [place] % (Auto) 4.2 (2-11) % Eos % (Auto) 1.5 (0-4) % Baso % (Auto) 0.4 (0-2) % Lymph # (Auto) 1.9 (1.2-4.9) X10*3/uL [place] # (Auto) 0.4 (0.1-1.2) X10*3/uL Eos # (Auto) 0.1 (0.0-0.4) X10*3/uL Baso # (Auto) 0.0 (0.0-0.2) X10*3/uL Abs Immat Gran (auto) 0.04 H (0.00-0.03) X10*3/uL Absolute Neuts (auto) 6.6 (2.0-8.3) x10*3/uL Absolute Nucleated RBC 0.000 (0.0-0.012) X10*3/uL Nucleated RBC % (auto) 0.0 (0.0-0.2) /100WBC Sodium 141 (135-145) mmol/L Potassium 4.1 (3.3-5.1) mmol/L Chloride 108 (96-108) mmol/L Carbon Dioxide 24 (22-29) mmol/L Anion Gap 13 (12-20) BUN 11 (9-16) mg/dL Creatinine 0.76 (0.5-1.4) mg/dL Estim Creat Clear Calc 102.9 Estimated GFR > 60 Random Glucose 98 (60-115) mg/dL Calcium 9.8 (8.4-10.2) mg/dL Magnesium 2.0 (1.6-2.6) mg/dL Total Bilirubin 1.5 H (0.0-1.0) mg/dL Direct Bilirubin 0.4 (0.0-0.5) mg/dL AST 28 (5-31) U/L ALT 35 H (0-31) U/L Alkaline Phosphatase 112 (39-117) U/L Total Protein 7.7 (6.5-8.0) g/dL Albumin 4.5 (3.5-5.0) g/dL Lipase 15 (8-78) U/L Beta HCG, Quant < 2 mIU/mL Radiology Impression Discussion of test interpretation with radiology: I have reviewed the radiologist's reading. Radiologist Impression: Please see the discussion above External Record Review External record reviewed: Outpatient record and Prior outpatient labs Discharge Plan Discharge Clinical Impression: Abdominal discomfort, Irritable bowel syndrome (IBS) Patient Disposition: Home, Self-Care Instructions: Abdominal Pain (ED), Irritable Bowel Syndrome (ED) Additional Instructions: 1. Resume all home medications as prescribed. 2. Recommend bytp-sis-nhceork Mylanta and a bland diet for the next 1-2 days. 3. Please follow-up with your primary care provider. Return to the ER for any worsening symptoms. Prescriptions: No Action Nexplanon 68 mg implant subdermal Referrals: Marizol Reilly MD [Primary Care Provider] -
[2022-10-12 11:29] LABS: MANUAL DIFF FLAG NO
[2022-10-12 11:32] LABS: Basophils Percent Auto 0.4 % (0-2); Eosinophils Absolute Auto 0.1 X10*3/uL (0.0-0.4); Eosinophils Percent Auto 1.5 % (0-4); Hematocrit 44.3 % (37.0-47.0); Hemoglobin 14.2 g/dl (12.0-16.0); Imm Gran Abs Auto 0.04 X10*3/uL (0.00-0.03); Imm Gran Pct Auto 0.4 % (0.0-0.4); Lymphocytes Absolute Auto 1.9 X10*3/uL (1.2-4.9); Lymphocytes Percent Auto 20.7 % (20-40); Mean Corpuscular HGB Conc 32.1 g/dl (31.0-35.0); Mean Corpuscular Hemoglobin 28.3 pg (27.0-33.0); Mean Corpuscular Volume 88.4 fL (80.0-98.0); Mean Platelet Volume 10.6 fL (9.4-12.3); Monocytes Absolute Auto 0.4 X10*3/uL (0.1-1.2); Monocytes Percent Auto 4.2 % (2-11); Neutrophils Absolute Auto 6.6 x10*3/uL (2.0-8.3); Neutrophils Percent Auto 72.8 % (45-73); Platelet Count 310 X10*3/uL (160-400); Red Blood Count 5.01 X10*6/uL (4.20-5.50); Red Cell Distribution Width 12.3 % (11.0-16.0); White Blood Count 9.1 X10*3/uL (4.8-10.8)
[2022-10-12 11:50] LABS: Alanine Aminotransferase 35 U/L (0-31); Albumin Level 4.5 g/dL (3.5-5.0); Alkaline Phosphatase 112 U/L (39-117); Anion Gap 13 (12-20); Aspartate Amino Transferase 28 U/L (5-31); Bilirubin Direct 0.4 mg/dL (0.0-0.5); Bilirubin Total 1.5 mg/dL (0.0-1.0); Blood Urea Nitrogen 11 mg/dL (9-16); Calcium 9.8 mg/dL (8.4-10.2); Carbon Dioxide 24 mmol/L (22-29); Chloride 108 mmol/L (96-108); Creatinine Clr Calc Pharmacy 102.9; Estimated Glomerular Filt Rate > 60; Glucose Random 98 mg/dL (60-115); Lipase 15 U/L (8-78); Potassium 4.1 mmol/L (3.3-5.1); Sodium 141 mmol/L (135-145); Total Protein 7.7 g/dL (6.5-8.0)
[2022-10-12] MEDS: ondansetron HCL 4 MG/2 ML VIAL IVPUSH (12:22)
[2022-10-12] MEDS: Ketorolac Tromethamine 30 MG/ML VIAL 15 MG IVPUSH (12:22)
[2022-10-12 12:36] VITALS: BP 105/61; PULSE 66; RESP 16; TEMP 37.1; O2SAT 97
[2022-10-12 12:42] LABS: HCG Quantitative < 2 mIU/mL
[2022-10-12] MEDS: iohexoL 350 MG/ML 100 ML INFUS..BTL 85 ML IV (13:08)
[2022-10-12] MEDS: Mag&Al/Sim/Diphenhyd/Lidocaine 10 ML ORAL.SUSP PO (15:19)
[2022-10-12 15:50] VITALS: BP 101/59; PULSE 61; RESP 16; TEMP 36.9; O2SAT 98
[2022-10-12 16:19] LABS: UPreg QC Valid YES; Urine Pregnancy NEGATIVE (NEGATIVE)
== END 2022-10-12 16:32 | disposition home or self-care (01) ==
PROVIDERS: Physician Assistant; Emergency Provider Student in an Organized Health Care Education/Training Program; PCP Internal Medicine
DX: K58.9 Irritable bowel syndrome, unspecified (principal); R11.2 Nausea with vomiting, unspecified; Z79.899 Other long term (current) drug therapy
CPT/HCPCS: 36415; 74177; 80048; 80076; 81003; 81025; 83690; 83735; 84702; 85025; 96374; 96375; 99284; J1885; J2405; Q9967

== ENCOUNTER 2022-10-19 16:07 | Outpatient (AMB) | payer OTHER, SELFPAY ==
[2022-10-19 16:12] VITALS: BP 106/82; PULSE 93; O2SAT 95; BMI 31.4
--- NOTE | 2022-10-19 16:12 | MHC.PC.OV ---
Vital Signs 10/19/22 16:12 Height 5 ft 3 in Weight 177 lb 4 oz BMI 31.4 BP 106/82 Blood Pressure Location Lt brachial Position Sitting Pulse 93 Pulse Source Pulse Oximeter Pulse Oximetry (%) 95 Oxygen Delivery Method Room Air Intake Visit Reasons: physical exam Intake Note: Patient is here today for a physical. Shipping Inspector Required: No Accompanied by: Self / Same As Patient Allergies No Known Allergies Allergy (Verified 10/19/22 16:29) Medication List - Last Reconciled 10/19/22 by Marizol Pimentel MD etonogestrel (Nexplanon) implant subdermal Tobacco use date assessed: 10/19/22 Dental Screening Dental Screen Date: 10/19/22 Did you have a dental visit in the last 12 months?: Yes Did you have a dental problem in the last 6 months where you did not have access to dental care?: No Was dental information given to patient?: Patient has dentist HPI HPI Comments History of Present Illness Details This is a 27-year-old female with moderate recurrent major depression that comes for her physical exam. Depression is follow by counseling and has been well control. Last Pap smear was August 2021 and was normal. She complains of nausea and abdominal pain that started few days ago. Went to ER yesterday and labs and CT scan of the abdomen were within normal limits. She also has diarrhea and was told a was the IBS. [facility] Medical History Anxiety Deaf Ear infection Febrile seizures Iron deficiency anemia Obesity (BMI 30.0-34.9) Surgical History No history of previous surgery Family History (Updated 10/19/22 @ 16:33 by Marizol Pimentel MD) Paternal Grandmother Diabetes mellitus HTN (hypertension) CVD (cardiovascular disease) Maternal Grandmother Diabetes mellitus HTN (hypertension) Skin cancer Father Diabetes mellitus HTN (hypertension) Maternal Aunt Diabetes mellitus HTN (hypertension) Breast CA Mother Thyroid disease Social History Housing: Apartment Alcohol intake: never Patient Tobacco Use Status: Former Tobacco user Tobacco use type: Cigarette e-Cigarette/Vaping Use: Never Used Second Hand Smoke Exposure: No service: No Current occupational status: employed Current occupational exposures/hazards: No Gender identity: Female Cognitive needs: No Hearing needs: No Vision needs: Yes Female Reproductive History Menstrual Age of Menarche: 12 Questionnaire PHQ-9 Over the last 2 weeks, how often have you been bothered by any of the following problems? 1. Little interest or pleasure in doing things: nearly every day 2. Feeling down, depressed, or hopeless: nearly every day 3. Trouble falling or staying asleep, or sleeping too much: nearly every day 4. Feeling tired or having little energy: nearly every day 5. Poor appetite or overeating: not at all 6. Feeling bad about yourself - or that you are a failure or have let yourself or your family down: nearly every day 7. Trouble concentrating on things, such as reading the newspaper or watching television: not at all 8. Moving or speaking so slowly that other people could have noticed. Or the opposite - being so fidgety or restless that you have been moving around a lot more than usual: not at all 9. Thoughts that you would be better off or of hurting yourself in some way: not at all Total score: 15 Depression Screening Interpretation: Positive (no suicidal thoughts) Depression Screening Follow-up: Existing condition and Community Mental Health Worker F/U 45338 - PHQ-9 Billing: Yes Source: Developed by Drs. Bart Ford, Chyna Osorio, Antwon Santana and colleagues, with an educational rachel from [employer] Thrive Questionnaire Date Thrive assessed: 10/19/22 I am a: Patient What is your living situation today?: I have a place to live, but I am worried about losing it in the future Within the past 12 months, did the food you bought not last and you didn't have the money to get more?: Never true Within the past 12 months, did you worry whether your food would run out before you got money to buy more?: Never true Do you have trouble paying for medicines?: No Do you have trouble getting transportation to medical appointments?: No Do you have trouble paying your heating and electricity bill?: No Do you have trouble taking care of your child, family member or friend?: No Do you have trouble with day-to-day activities such as bathing, preparing meals, shopping, managing finances, etc.?: No Are you currently unemployed and looking for a job?: No Are you interested in more education?: No Please select the resources that you would like help with: None Currently or been in a relationship where the following occur: no concerns reported AUDIT C Alcohol Use Questionnaire (AUDIT-C) 1. How often do you have a drink containing alcohol?: Never 3. How often do you have six or more drinks on one occasion?: Never Total Score: 0 Score Reviewed/Action Taken: No ALY-7 AMB Questionnaire LAY-7 Date ALY - 7 assessed: 10/19/22 Feeling nervous, anxious, or on edge: 3 = Nearly every day Not being able to stop or control worryin = Nearly every day Worrying too much about different things: 3 = Nearly every day Trouble relaxin = Nearly every day Being so restless that it is hard to sit still: 3 = Nearly every day Becoming easily annoyed or irritable: 3 = Nearly every day Feeling afraid as if something awful might happen: 3 = Nearly every day Total ALY-7 score (0-4 normal; 5-9 mild; 10-14 moderate; 15-21 severe): 21 Source: Developed by Drs. Bart Ford, Chyna Osorio, Antwon Santana and colleagues, with an educational rachel from [employer] ALY-7 Assessment Billing ALY-7 Assessment Tool: ALY-7 Assessment 26418 Review of Systems Const All systems reviewed & are unremarkable except as noted in HPI and below Eyes Reports no additional complaints, Denies change in vision and Denies other visual disturbances Card Denies chest pain at rest, Denies chest pain with activity, Denies edema, Denies irregular heart rhythm, Denies claudication, Denies dyspnea, Denies dyspnea on exertion, Denies orthopnea, Denies paroxysmal nocturnal dyspnea and Denies slow heart rate Resp Denies cough, Denies dyspnea and Denies dyspnea on exertion GI Denies abdominal pain, Denies change in bowel habits, Denies excessive flatus, Denies nausea and Denies vomiting Denies urinary incontinence, Denies urinary hesitancy and Denies urinary urgency Musc Denies abnormal gait, Denies atrophy, Denies deformity and Denies limited range of motion Skin/Breast Denies bleeding lesions, Denies changing lesions and Denies rash Neuro Denies abnormal gait and Denies lack of coordination Physical exam (Primary Care) Vital Signs: Last Vital Signs Pulse 93 10/19/22 16:12 BP 106/82 10/19/22 16:12 Pulse Ox 95 10/19/22 16:12 Oxygen Delivery Method Room Air 10/19/22 16:12 BMI result Body Mass Index 31.4 Tobacco/Smoking Status: Tobacco use Status Tobacco use date assessed 10/19/22 10/19/22 16:28 Patient Tobacco Use Status Former Tobacco user 10/19/22 16:12 Tobacco use type Cigarette 10/19/22 16:12 e-Cigarette/Vaping Use Never Used 10/19/22 16:12 PHQ-9: PHQ-9 Score PHQ-9: Total score 15 10/19/22 16:36 Depression Screening Interpretation: Positive (no suicidal thoughts) Depression Screening Follow-up: Existing condition and Community Mental Health Worker F/U Thrive Assessment: Date of Thrive Assessment Date Thrive assessed 10/19/22 10/19/22 16:28 Currently or been in a relationship where the following occur: no concerns reported Const Orientation/consciousness: patient oriented x3 HENOK Head: Yes normal to inspection, Yes normocephalic and Yes atraumatic Ears: external ears normal Eyes General: appearance normal, both eyes and all related structures Eyelids: Yes eyelids normal Conjunctivae: conjunctivae normal Neck Neck: Yes normal visual inspection and Yes supple Resp Effort & Inspection: normal respiratory effort Auscultation: clear to auscultation bilaterally Cardio Jugular venous distension: no JVD Rate: regular rate Rhythm: regular rhythm Heart sounds: S1 normal heart sound present and S2 normal heart sound present GI Inspection: Yes normal to inspection Palpation (GI): Soft to palpation and nontender Auscultation: normal bowel sounds Skin General skin exam: no rashes or lesions noted Neuro General: patient oriented x3 and no focal motor deficits Extrem General: Yes full ROM Psych Appearance: grossly normal Assessment and Plan Assessment & Plan (1) Physical exam: Code(s): Z00.00 - Encounter for general adult medical examination without abnormal findings Plan: Repeat in a year. (2) Moderate recurrent major depression: Code(s): F33.1 - Major depressive disorder, recurrent, moderate Plan: Continue counseling. Medications: New ondansetron 8 mg PO Q12H PRN 60 tabs 0RF nausea and vomiting 30 days Coding Level of Care Code Est Pt Prev Care 18-39y(96210) Diagnoses Physical exam Z00.00 Moderate recurrent major depression F33.1 Additional Codes ALY-7 Assessment Billing - ALY-7 Assessment Tool: ALY-7 Assessment 57929 ([id number]) Time Spent (min) 32
== END 2022-10-19 16:51 | disposition home or self-care (01) ==
PROVIDERS: PCP Internal Medicine; Visit Provider Internal Medicine
DX: Z00.00 Encounter for general adult medical examination without abnormal findings (principal); F33.1 Major depressive disorder, recurrent, moderate
CPT/HCPCS: 99395

== ENCOUNTER 2022-11-23 11:11 | Outpatient (AMB) | payer OTHER, SELFPAY ==
--- NOTE | 2022-11-23 12:04 | MHC.OFFWIV ---
Intake Vital Signs 11/23/22 12:11 Weight 176 lb BP 116/70 Blood Pressure Location Lt brachial Position Sitting Pulse 75 Pulse Source Pulse Oximeter Temp 98.5 F Temp Source Oral Pulse Oximetry (%) 95 Oxygen Delivery Method Room Air Intake Visit Reasons: EST/cough since yesterday/vomitting [phone] Intake Note: Patient here for cough, runny nose, vomiting and dizziness which has been present since yesterday. Patient Tobacco Use Status: Former Tobacco user Allergies No Known Allergies Allergy (Verified 11/23/22 12:06) Do you need a note to return to daycare/school/sports/work: Yes HPI EST/cough since yesterday/vomitting [phone] HPI Details 27-year-old female patient presents today for a sick visit. Reports a 1 day history of productive cough with yellow sputum, nasal congestion, nausea/vomiting, and occasional dizziness. Exposed to 2-year-old son who has similar symptoms. He was seen at [facility] and has viral testing pending. Denies any shortness of breath. ON LICENSE OF [facility] Medical History Ear infection Febrile seizures Deaf Obesity (BMI 30.0-34.9) Iron deficiency anemia Anxiety Surgical History No history of previous surgery Family History Paternal Grandmother Diabetes mellitus HTN (hypertension) CVD (cardiovascular disease) Maternal Grandmother Diabetes mellitus HTN (hypertension) Skin cancer Father Diabetes mellitus HTN (hypertension) Maternal Aunt Diabetes mellitus HTN (hypertension) Breast CA Mother Thyroid disease Social History Housing: Apartment Alcohol intake: never Patient Tobacco Use Status: Former Tobacco user Tobacco use type: Cigarette e-Cigarette/Vaping Use: Never Used Second Hand Smoke Exposure: No service: No Current occupational status: employed Current occupational exposures/hazards: No Gender identity: Female Cognitive needs: No Hearing needs: No Vision needs: Yes Female Reproductive History Menstrual Age of Menarche: 12 Review of Systems Const All systems reviewed & are unremarkable except as noted in HPI and below Physical Exam Vital Signs: Last Vital Signs Temp 98.5 F 11/23/22 12:11 Pulse 75 11/23/22 12:11 BP 116/70 11/23/22 12:11 Pulse Ox 95 11/23/22 12:11 Oxygen Delivery Method Room Air 11/23/22 12:11 Const General: cooperative and ill appearing acutely HEENT Head: Yes normal to inspection General nose exam: Normal external nose present and Normal nasal mucous membranes and turbinates present Face and sinus: Yes normal facial exam and Yes sinuses nontender Mouth: Normal oral and palatal mucosa present and moist mucous membranes Throat: Yes posterior oropharynx normal Neck Neck: Yes no lymphadenopathy Resp Effort & Inspection: normal respiratory effort, able to speak in complete sentences and Actively coughing (yellow sputum) Quality: productive Auscultation: clear to auscultation bilaterally Cardio Jugular venous distension: no JVD Palpation: normal PMI Rate: regular rate Rhythm: regular rhythm Skin General skin exam: no rashes or lesions noted Extrem General: Yes capillary refill normal and Yes no clubbing, cyanosis or edema Psych Appearance: grossly normal Mental Status: mental status grossly normal Speech and movement: Normal speech and movement present Assessment & Plan Assessment & Plan (1) Upper respiratory infection: Code(s): J06.9 - Acute upper respiratory infection, unspecified Qualifiers: URI type: unspecified viral URI Qualified Code(s): J06.9 - Acute upper respiratory infection, unspecified Plan: Symptoms consistent with viral illness. Discussed this with patient. COVID/flu/RSV viral swab obtained. She will be notified with result of these once available. I will prescribe her Benzonatate for her cough and also Zofrn prn any ongoing nausea/vomiting. Reviewed indications, use, possible side effects of medications. She may also utilize [id number] Tylenol/Motrin any ongoing headaches/body aches. Encouraged her to increase rest, hydration, vitamin C intake. If she does not improve with time and conservative measures, or if symptoms worsen or new symptoms develop, she should return to the clinic for follow-up with PCP for further evaluation. She verbalizes understanding and agrees to plan. Work note provided. Orders: Orders SARS-CoV2/FLU/RSV Today J06.9 - Acute upper respiratory infection, unspecified Medications: New ondansetron HCl 4 mg PO Q8H PRN 10 tabs 0RF nausea and vomiting benzonatate 100 mg PO BID 7 days PRN 14 caps 0RF cough R05.9 - Cough, unspecified Coding Level of Care Code Est Pt Level 3 (82201) Diagnoses Viral upper respiratory tract infection J06.9 URI type: unspecified viral URI
[2022-11-23 12:11] VITALS: BP 116/70; PULSE 75; TEMP 36.9; O2SAT 95
== END 2022-11-23 12:45 | disposition home or self-care (01) ==
PROVIDERS: PCP Internal Medicine; Visit Provider Nurse Practitioner Family
DX: J06.9 Acute upper respiratory infection, unspecified (principal)
CPT/HCPCS: 99213

== ENCOUNTER 2022-11-23 12:29 | Outpatient (REF) | payer OTHER, SELFPAY ==
[2022-11-23 18:00] LABS: Influenza A PCR NEGATIVE (Negative); Influenza B PCR NEGATIVE (Negative); Resp Syncy Virus RNA Qual PCR NEGATIVE (Negative); SARS COV2 PCR INHOUSE NEGATIVE (Negative)
== END 2022-11-23 12:30 | disposition home or self-care (01) ==
LOC: HO.LAB 12:29
PROVIDERS: Visit Provider Nurse Practitioner Family
DX: J06.9 Acute upper respiratory infection, unspecified (principal); Z20.822 Contact with and (suspected) exposure to COVID-19
CPT/HCPCS: 0241U

== ENCOUNTER 2022-12-22 11:50 | Emergency (ER) | payer OTHER, SELFPAY ==
--- NOTE | ~2022-12-22 | US_ITS ---
EXAMINATION: US ABDOMEN LIMITED LEFT UPPER QUADRANT CLINICAL INFORMATION: Left upper quadrant pain. COMPARISON: None available. TECHNIQUE: Real-time imaging of the left upper quadrant abdominal viscera. FINDINGS: PANCREAS: Only partially visualized but grossly normal. The tail is obscured. SPLEEN: Normal. The spleen measures 10.0 cm long. LEFT KIDNEY: Normal. No hydronephrosis. No renal calculi or focal parenchymal lesions. The kidney measures 10.7 cm in maximum dimension. FREE FLUID: None. US/US abdomen limited IMPRESSION: Unremarkable limited left upper quadrant ultrasound.
[2022-12-22 12:59] VITALS: BP 113/71; PULSE 77; RESP 18; TEMP 36.6; O2SAT 97; BMI 30.8
--- NOTE | 2022-12-22 12:59 | ED.ABDPAIN ---
HPI - Abdominal Pain General Chief Complaint: Abdominal Pain Stated Complaint: Vomiting/Abd pain Related Data Home Medications Medication Instructions Recorded Confirmed etonogestrel 68 mg subdermal implant subdermal 03/19/21 10/19/22 implant (Nexplanon) Previous Rx's Medication Instructions Recorded benzonatate 100 mg capsule 100 mg PO BID PRN cough 7 days #14 11/23/22 caps ondansetron HCl 4 mg tablet 4 mg PO Q8H PRN nausea and 11/23/22 vomiting #10 tabs dicyclomine 10 mg capsule 10 mg PO TID PRN abdominal pain 12/23/22 #14 caps ondansetron 4 mg disintegrating 4 mg PO Q8H PRN nausea and 12/23/22 tablet vomiting #10 tabs Allergies Allergy/AdvReac Type Severity Reaction Status Date / Time No Known Allergies Allergy Verified 12/23/22 09:56 PMF Past Medical History Medical History Ear infection Febrile seizures Deaf Obesity (BMI 30.0-34.9) Iron deficiency anemia Anxiety Surgical History No history of previous surgery Family History Family History Paternal Grandmother Diabetes mellitus HTN (hypertension) CVD (cardiovascular disease) Maternal Grandmother Diabetes mellitus HTN (hypertension) Skin cancer Father Diabetes mellitus HTN (hypertension) Maternal Aunt Diabetes mellitus HTN (hypertension) Breast CA Mother Thyroid disease Social History Social History Housing: Apartment Alcohol intake: never Patient Tobacco Use Status: Former Tobacco user Tobacco use type: Cigarette e-Cigarette/Vaping Use: Never Used Second Hand Smoke Exposure: No Advance Directives: No Advance Directives Information Provided: No service: No Current occupational status: employed Current occupational exposures/hazards: No Gender identity: Female Cognitive needs: No Hearing needs: No Vision needs: Yes Physical Exam ED Vital Signs: Vital Signs - 24 hr 12/22/22 12:59 Temperature 97.9 F Pulse Rate 77 Respiratory Rate 18 Blood Pressure 113/71 Pulse Oximetry 97 Oxygen Delivery Method Room Air BMI result Body Mass Index 30.8 Course Course Course Narrative: RME: 27yo F w/PMHx PTSD, anemia, anxiety, c/o LUQ abdominal pain w/ N/V/D x 3 days. denies fever, dysuria/hematuria Abdomen soft w/LUQ ttp. No CVAT Labs, UA, Abd US ordered Full HPI, ROS and PE to be performed by primary ED provider. Medical Decision Making Lab Data Labs: Lab Results 12/22/22 Range/Units 13:25 Urine Color Dark Yellow Urine Appearance Cloudy Urine pH 5.5 (5.0-9.0) Ur Specific [place] >= 1.030 H (1.005-1.025) Urine Protein Trace (Neg-Trace) mg/dL Urine Glucose (UA) Negative (Negative) mg/dL Urine Ketones 80 (Negative) mg/dL Urine Blood Negative (Negative) Urine Nitrite Negative (Negative) Ur Leukocyte Esterase Trace H (Negative) Urine RBC 3-5 H (0-2) /HPF Urine WBC 0-5 (0-5) /HPF Ur Squamous Epith Cells 3-5 (0-2) /HPF Urine Bacteria Trace (None Seen) Hyaline Casts 6-10 (0-2) /LPF Urine Test NEGATIVE (NEGATIVE) Discharge Plan Discharge Clinical Impression: Abdominal pain Patient Disposition: Left W/O Completing Treatment Prescriptions: No Action ondansetron 4 mg tablet,disintegrating 4 mg PO Q8H PRN (Reason: nausea and vomiting) Qty: 10 0RF dicyclomine 10 mg capsule 10 mg PO TID PRN (Reason: abdominal pain) Qty: 14 0RF ondansetron HCl 4 mg tablet 4 mg PO Q8H PRN (Reason: nausea and vomiting) Qty: 10 0RF benzonatate 100 mg capsule 100 mg PO BID PRN (Reason: cough) 7 Days Qty: 14 0RF Nexplanon 68 mg implant subdermal Discharge Date/Time: 12/22/22 20:05
[2022-12-22 13:39] LABS: Appearance Urine Cloudy; Color Urine Dark Yellow; Glucose Urine UA Negative (Negative); Leukocyte Esterase Urine Trace (Negative); Nitrite Urine Negative (Negative); PH 5.5 (5.0-9.0); Specific Gravity - Urine >= 1.030 (1.005-1.025); UMIC TRIGGER UACC YES; Urine Blood Negative (Negative); Urine Ketones 80 mg/dL (Negative); Urine Protein Trace mg/dL (Neg-Trace)
[2022-12-22 13:41] LABS: UPreg QC Valid YES; Urine Pregnancy NEGATIVE (NEGATIVE)
[2022-12-22 13:50] LABS: Bacteria Urine Trace (None Seen); WBC Urine 0-5 /HPF (0-5)
== END 2022-12-22 20:05 | disposition left against medical advice (07) ==
PROVIDERS: Physician Assistant; Emergency Provider Emergency Medicine; PCP Internal Medicine
DX: R10.12 Left upper quadrant pain (principal)
CPT/HCPCS: 76705; 81001; 81025; 99282; 99284

== ENCOUNTER 2022-12-23 09:49 | Emergency (ER) | payer OTHER, SELFPAY ==
--- NOTE | ~2022-12-23 | US_ITS ---
EXAMINATION: US ABDOMEN LIMITED CLINICAL INFORMATION: Right upper quadrant pain. COMPARISON: 12/22/2022 TECHNIQUE: Real-time imaging of the right upper quadrant abdominal viscera. FINDINGS: PANCREAS: Tail obscured. LIVER: The liver is normal in size. The liver contour is normal. There is diffuse increased liver parenchymal echogenicity, consistent with hepatic steatosis. No focal hepatic lesion. There is no intrahepatic biliary duct dilatation seen. GALLBLADDER: The gallbladder is physiologically distended without evidence of stones, sludge, polyps, wall thickening or pericholecystic fluid. Positive sonographic Sams's sign. COMMON BILE DUCT: Normal in caliber measuring 0.4 cm in diameter. RIGHT KIDNEY: No hydronephrosis. No renal calculi or focal parenchymal lesions. The kidney measures 11.0 cm in maximum dimension. FREE FLUID: None. US/US abdomen limited IMPRESSION: Hepatic steatosis. Positive sonographic Sams's sign. This is an equivocal finding.
[2022-12-23 09:56] VITALS: BP 112/71; PULSE 86; RESP 19; TEMP 36.6; O2SAT 98; BMI 30.8
[2022-12-23 10:14] LABS: Basophils Percent Auto 0.4 % (0-2); Eosinophils Absolute Auto 0.1 X10*3/uL (0.0-0.4); Eosinophils Percent Auto 0.5 % (0-4); Hematocrit 42.1 % (37.0-47.0); Hemoglobin 14.1 g/dl (12.0-16.0); Imm Gran Abs Auto 0.03 X10*3/uL (0.00-0.03); Imm Gran Pct Auto 0.3 % (0.0-0.4); Lymphocytes Absolute Auto 1.4 X10*3/uL (1.2-4.9); Lymphocytes Percent Auto 15.4 % (20-40); MANUAL DIFF FLAG NO; Mean Corpuscular HGB Conc 33.5 g/dl (31.0-35.0); Mean Corpuscular Hemoglobin 28.1 pg (27.0-33.0); Mean Corpuscular Volume 83.9 fL (80.0-98.0); Mean Platelet Volume 10.7 fL (9.4-12.3); Monocytes Absolute Auto 0.5 X10*3/uL (0.1-1.2); Monocytes Percent Auto 5.1 % (2-11); Neutrophils Absolute Auto 7.3 x10*3/uL (2.0-8.3); Neutrophils Percent Auto 78.3 % (45-73); Platelet Count 285 X10*3/uL (160-400); Red Blood Count 5.02 X10*6/uL (4.20-5.50); Red Cell Distribution Width 12.9 % (11.0-16.0); White Blood Count 9.4 X10*3/uL (4.8-10.8)
[2022-12-23 10:36] LABS: Alanine Aminotransferase 25 U/L (0-31); Albumin Level 4.5 g/dL (3.5-5.0); Alkaline Phosphatase 98 U/L (39-117); Anion Gap 16 (12-20); Aspartate Amino Transferase 27 U/L (5-31); Bilirubin Direct 0.7 mg/dL (0.0-0.5); Bilirubin Total 2.7 mg/dL (0.0-1.0); Blood Urea Nitrogen 11 mg/dL (9-16); Calcium 10.1 mg/dL (8.4-10.2); Carbon Dioxide 16 mmol/L (22-29); Chloride 109 mmol/L (96-108); Creatinine Clr Calc Pharmacy 117.7; Estimated Glomerular Filt Rate > 60; Glucose Random 104 mg/dL (60-115); Lipase 18 U/L (8-78); Potassium 3.5 mmol/L (3.3-5.1); Sodium 137 mmol/L (135-145); Total Protein 7.8 g/dL (6.5-8.0)
--- NOTE | 2022-12-23 11:59 | ED_ITS ---
HPI - Abdominal Pain General Chief Complaint: Abdominal Pain Stated Complaint: abd pain Time Seen by Provider: 12/23/22 11:57 Source: patient, old records reviewed and cooker syrup Mode of arrival: ambulatory Limitations: no limitations History of Present Illness HPI narrative: 27 yo female with history of PTSD, IBS, depression, iron deficiency anemia presents to the ER for evaluation of LUQ pain for the last 3 days. She was seen here yesterday for the same, had an unremarkable abdominal U/S of LUQ. She reports ongoing pain in the epigastric area with ongoing N/V/D. Unable to tolerate PO. She denies sick contacts or fevers. No URI symptoms. MD elicited complaint: abdominal pain Pertinent past history: none Onset (ago): day(s) (4) Pain Consistency: constant Location: epigastric and LUQ Severity: moderate Quality: stabbing Radiation: none Migration to: no migration Exacerbating factors: eating Relieving factors: nothing Associated symptoms: nausea, vomiting and diarrhea Related Data Home Medications Medication Instructions Recorded Confirmed etonogestrel 68 mg subdermal implant subdermal 03/19/21 10/19/22 implant (Nexplanon) Previous Rx's Medication Instructions Recorded benzonatate 100 mg capsule 100 mg PO BID PRN cough 7 days #14 11/23/22 caps ondansetron HCl 4 mg tablet 4 mg PO Q8H PRN nausea and 11/23/22 vomiting #10 tabs dicyclomine 10 mg capsule 10 mg PO TID PRN abdominal pain 12/23/22 #14 caps ondansetron 4 mg disintegrating 4 mg PO Q8H PRN nausea and 12/23/22 tablet vomiting #10 tabs Allergies Allergy/AdvReac Type Severity Reaction Status Date / Time No Known Allergies Allergy Verified 12/23/22 09:56 Review of Systems Review of Systems Yes all other systems are reviewed and are negative [facility] Past Medical History Medical History Ear infection Febrile seizures Deaf Obesity (BMI 30.0-34.9) Iron deficiency anemia Anxiety Surgical History No history of previous surgery Family History Family History Paternal Grandmother Diabetes mellitus HTN (hypertension) CVD (cardiovascular disease) Maternal Grandmother Diabetes mellitus HTN (hypertension) Skin cancer Father Diabetes mellitus HTN (hypertension) Maternal Aunt Diabetes mellitus HTN (hypertension) Breast CA Mother Thyroid disease Social History Social History Housing: Apartment Alcohol intake: never Patient Tobacco Use Status: Former Tobacco user Tobacco use type: Cigarette e-Cigarette/Vaping Use: Never Used Second Hand Smoke Exposure: No Advance Directives: No Advance Directives Information Provided: No service: No Current occupational status: employed Current occupational exposures/hazards: No Gender identity: Female Cognitive needs: No Hearing needs: No Vision needs: Yes Physical Exam ED Vital Signs: Vital Signs - 24 hr 12/23/22 09:56 Temperature 98 F Pulse Rate 86 Respiratory Rate 19 Blood Pressure 112/71 Pulse Oximetry 98 Oxygen Delivery Method Room Air BMI result Body Mass Index 30.8 Appearance: Alert. Oriented X3. No acute distress. Head: normocephalic, atraumatic. Eyes: Pupils equal, round and reactive to light. ENT: Pharynx normal. No tonsillar swelling or exudate. Neck: Normal inspection. Neck supple. CVS: Normal heart rate and rhythm. Pulses normal. Respiratory: No respiratory distress. Breath sounds normal. Abdomen: Soft with RUQ tenderness with involuntary guarding, +BS x4 Skin: Skin warm and dry. Normal skin color. Normal skin turgor. No rashes. Extremities: No lower extremity edema. No joint swelling. Neuro/psych: Oriented X 3. No motor deficit. No sensory deficit. CN II-XII intact. Normal speech and cognition. Course Reevaluation(s) Reevaluation #1: US negative tolerating PO stable for d/c home w/ antiemetics Time: 15:11 Medical Decision Making Medical Decision Making MDM Narrative: 27 yo female presenting to the ER for evaluation of abd pain, N/V/D x4 days. Abd pain was LUQ and now she has RUQ tenderness on exam. Tbili 2.7 w/ dbili 0.7, LFTs and alk phos normal. RUQ did not show any stones or pericholecystic fluid today. she is clinically dry w/ low bicarb likely due to GI losses. she was given IVF and then IV infiltrated. she was given zofran and morphine w/ good effect. she was able to tolerate PO without any vomiting or diarrhea. at this time comfortable w/ discharge home w/ antiemetics and supportive care, likely gastroenteritis Differential Diagnosis Differential Diagnoses: The differential diagnosis associated with the presentation includes gastroenteritis, gastritis, gerd, cholecystitis, dehydration, ascending cholangitis Admission/Observation Consideration of admission/observation: Escalation of care including admission/observation considered 2nd visit in 2 days, considered obs/admit Lab Data MDM Lab Attestation statement: I reviewed the patient's lab results. no leukocytosis, LFTS normal 12/23/22 10:10 12/23/22 10:10 Labs: Lab Results 12/23/22 Range/Units 10:10 WBC 9.4 (4.8-10.8) X10*3/uL RBC 5.02 (4.20-5.50) X10*6/uL Hgb 14.1 (12.0-16.0) g/dl Hct 42.1 (37.0-47.0) % MCV 83.9 (80.0-98.0) fL MCH 28.1 (27.0-33.0) pg MCHC 33.5 (31.0-35.0) g/dl RDW 12.9 (11.0-16.0) % Plt Count 285 (160-400) X10*3/uL MPV 10.7 (9.4-12.3) fL Immature Gran % (Auto) 0.3 (0.0-0.4) % Neut % (Auto) 78.3 H (45-73) % Lymph % (Auto) 15.4 L (20-40) % [place] % (Auto) 5.1 (2-11) % Eos % (Auto) 0.5 (0-4) % Baso % (Auto) 0.4 (0-2) % Lymph # (Auto) 1.4 (1.2-4.9) X10*3/uL [place] # (Auto) 0.5 (0.1-1.2) X10*3/uL Eos # (Auto) 0.1 (0.0-0.4) X10*3/uL Baso # (Auto) 0.0 (0.0-0.2) X10*3/uL Abs Immat Gran (auto) 0.03 (0.00-0.03) X10*3/uL Absolute Neuts (auto) 7.3 (2.0-8.3) x10*3/uL Absolute Nucleated RBC 0.000 (0.0-0.012) X10*3/uL Nucleated RBC % (auto) 0.0 (0.0-0.2) /100WBC Sodium 137 (135-145) mmol/L Potassium 3.5 (3.3-5.1) mmol/L Chloride 109 H (96-108) mmol/L Carbon Dioxide 16 L (22-29) mmol/L Anion Gap 16 (12-20) BUN 11 (9-16) mg/dL Creatinine 0.72 (0.5-1.4) mg/dL Estim Creat Clear Calc 117.7 Estimated GFR > 60 Random Glucose 104 (60-115) mg/dL Calcium 10.1 (8.4-10.2) mg/dL Total Bilirubin 2.7 H (0.0-1.0) mg/dL Direct Bilirubin 0.7 H (0.0-0.5) mg/dL AST 27 (5-31) U/L ALT 25 (0-31) U/L Alkaline Phosphatase 98 (39-117) U/L Total Protein 7.8 (6.5-8.0) g/dL Albumin 4.5 (3.5-5.0) g/dL Lipase 18 (8-78) U/L Independent Interpretation I performed an independent interpretation of an: Ultrasound Interpretation: no GB stones or wall thickening Radiology Impression Discussion of test interpretation with radiology: I have reviewed the radiologist's reading. Radiologist Impression: EXAMINATION: US ABDOMEN LIMITED CLINICAL INFORMATION: Right upper quadrant pain. COMPARISON: 12/22/2022 TECHNIQUE: Real-time imaging of the right upper quadrant abdominal viscera. FINDINGS: PANCREAS: Tail obscured. LIVER: The liver is normal in size. The liver contour is normal. There is diffuse increased liver parenchymal echogenicity, consistent with hepatic steatosis. No focal hepatic lesion. There is no intrahepatic biliary duct dilatation seen. GALLBLADDER: The gallbladder is physiologically distended without evidence of stones, sludge, polyps, wall thickening or pericholecystic fluid. Positive sonographic Sams's sign. COMMON BILE DUCT: Normal in caliber measuring 0.4 cm in diameter. RIGHT KIDNEY: No hydronephrosis. No renal calculi or focal parenchymal lesions. The kidney measures 11.0 cm in maximum dimension. FREE FLUID: None. US/US abdomen limited IMPRESSION: Hepatic steatosis. Positive sonographic Sams's sign. This is an equivocal finding. Independent Historian Clinical information obtained from an independent historian. History obtained from or confirmed by: Parent External Record Review External record reviewed: Outpatient record and Prior outpatient radiology Prescription Management I considered prescription management with: Pain Medication and Other (antiemetic) Chronic Conditions Patient?s care impacted by: Other (IBS) Medications Administered Discontinued Medications Generic Name Dose Route Start Last Admin Trade Name Freq PRN Reason Stop Dose Admin Sodium Chloride 1,000 mls @ 999 mls/hr 12/23/22 12:15 12/23/22 13:44 Ns IV 12/23/22 13:15 999 mls/hr .Q1H1M JEANNE Administration Ondansetron HCl 4 mg 12/23/22 12:15 12/23/22 13:44 Ondansetron Hcl 4 Mg/2 Ml Vial IVPUSH 12/23/22 12:16 4 mg ONCE ONE Administration Critical Care Time Critical Care Time Critical Care Time: No Discharge Plan Discharge Clinical Impression: Gastroenteritis Patient Disposition: Home, Self-Care Instructions: Gastroenteritis (DC) Additional Instructions: You lab workup today was unremarkable. Urine test yesterday was negative for infection and Your ultrasound did not show any evidence of gallbladder infection or stones. You most likely have a viral GI bug also known as gastroenteritis. Treatment is supportive care, symptoms usually resolve on their own in 48-72 hours. Recommend rest and plenty of oral hydration. Stick to a bland diet like soup and toast while you are not feeling well. Take the prescribed medication as needed for nausea. Recommend over the counter Pepto Bismol or Imodium for upset stomach and diarrhea. Follow up with your doctor as needed. If you develop new or worsening symptoms call 911 or come back to the ER for further evaluation. Prescriptions: New ondansetron 4 mg tablet,disintegrating 4 mg PO Q8H PRN (Reason: nausea and vomiting) Qty: 10 0RF dicyclomine 10 mg capsule 10 mg PO TID PRN (Reason: abdominal pain) Qty: 14 0RF No Action ondansetron HCl 4 mg tablet 4 mg PO Q8H PRN (Reason: nausea and vomiting) Qty: 10 0RF benzonatate 100 mg capsule 100 mg PO BID PRN (Reason: cough) 7 Days Qty: 14 0RF Nexplanon 68 mg implant subdermal Stand Alone Forms: Work/School Release
[2022-12-23] MEDS: 0.9 % Sodium Chloride 1,000 ML 999 ML IV (13:44)
[2022-12-23] MEDS: ondansetron HCL 4 MG/2 ML VIAL IVPUSH (13:44)
== END 2022-12-23 15:59 | disposition home or self-care (01) ==
PROVIDERS: Emergency Provider Emergency Medicine; PCP Internal Medicine
DX: R10.13 Epigastric pain (principal); R10.12 Left upper quadrant pain; R10.11 Right upper quadrant pain; Z87.891 Personal history of nicotine dependence; Z79.899 Other long term (current) drug therapy
CPT/HCPCS: 36415; 76705; 80048; 80076; 83690; 85025; 96374; 99283; 99284; J2405

== ENCOUNTER 2023-04-06 16:37 | Emergency (ER) | payer OTHER, SELFPAY ==
[2023-04-06 16:42] VITALS: BP 117/85; PULSE 95; RESP 16; TEMP 36.7; O2SAT 97; BMI 28.3
--- NOTE | 2023-04-06 16:43 | ED.GENADULT ---
HPI - General Adult General Chief complaint: Upper Respiratory Symptoms Stated complaint: strep throat, severe pain Time Seen by Provider: 04/06/23 16:42 Source: patient, RN notes reviewed and old records reviewed Mode of arrival: ambulatory Limitations: no limitations History of Present Illness HPI narrative: 28-year-old female presents for evaluation of ?strep throat. ? Patient reports that she started with a sore throat earlier this morning. She states that her son is home days treated for strep throat after testing positive The patient reports that she tested herself for strep throat at work and it was positive She states she could not be treated because she was not a patient where she works She presents here for treatment of strep throat Related Data Home Medications Medication Instructions Recorded Confirmed etonogestrel 68 mg subdermal implant subdermal 03/19/21 10/19/22 implant (Nexplanon) Previous Rx's Medication Instructions Recorded benzonatate 100 mg capsule 100 mg PO BID PRN cough 7 days #14 11/23/22 caps ondansetron HCl 4 mg tablet 4 mg PO Q8H PRN nausea and 11/23/22 vomiting #10 tabs dicyclomine 10 mg capsule 10 mg PO TID PRN abdominal pain 12/23/22 #14 caps ondansetron 4 mg disintegrating 4 mg PO Q8H PRN nausea and 12/23/22 tablet vomiting #10 tabs amoxicillin 875 mg-potassium 1 tab PO BID #14 tabs 04/06/23 clavulanate 125 mg tablet Allergies Allergy/AdvReac Type Severity Reaction Status Date / Time No Known Allergies Allergy Verified 12/23/22 09:56 Review of Systems Constitutional: Constitutional: Denies chills and Denies fever(s) ENT: Reports sore throat PMFSH Past Medical History Medical History Ear infection Febrile seizures Deaf Obesity (BMI 30.0-34.9) Iron deficiency anemia Anxiety Surgical History No history of previous surgery Family History Family History Paternal Grandmother Diabetes mellitus HTN (hypertension) CVD (cardiovascular disease) Maternal Grandmother Diabetes mellitus HTN (hypertension) Skin cancer Father Diabetes mellitus HTN (hypertension) Maternal Aunt Diabetes mellitus HTN (hypertension) Breast CA Mother Thyroid disease Social History Social History Housing: Apartment Alcohol intake: never Patient Tobacco Use Status: Former Tobacco user Tobacco use type: Cigarette e-Cigarette/Vaping Use: Never Used Second Hand Smoke Exposure: No service: No Current occupational status: employed Current occupational exposures/hazards: No Gender identity: Female Cognitive needs: No Hearing needs: No Vision needs: Yes Physical Exam ED Vital Signs: Vital Signs - 24 hr 04/06/23 16:42 Temperature 98.1 F Pulse Rate 95 Respiratory Rate 16 Blood Pressure 117/85 Pulse Oximetry 97 Oxygen Delivery Method Room Air BMI result Body Mass Index 28.3 Const General: healthy appearing, comfortable, no acute distress, alert and awake Nutritional Appearance: well nourished Orientation/consciousness: patient oriented x3 HENMT Other: Erythematous oropharynx with bilateral tonsillar hypertrophy. Head: Yes normocephalic and Yes atraumatic Resp Effort & Inspection: normal respiratory effort, able to speak in complete sentences and not labored Skin General skin exam: elasticity normal Neuro General: patient oriented x3 Cranial nerves: Yes Bilaterally intact EOM present Cognition (Neuro): normal cognition Extrem Other: Moving all extremities well without any obvious deformities Medical Decision Making Medical Decision Making MDM Narrative: Will treat the patient for strep pharyngitis with Augmentin. I do not see any reason to repeat testing. There is no evidence of abscess. Differential Diagnosis Differential Diagnoses: The differential diagnosis associated with the presentation includes Strep pharyngitis Exudative pharyngitis Upper respiratory infection Influenza Viral syndrome Discharge Plan Discharge Clinical Impression: Strep throat Patient Disposition: Home, Self-Care Instructions: Strep Throat (ED) Additional Instructions: Take Augmentin twice daily for the next 7 days. Use Motrin/Tylenol for sore throat, fevers. You may also use saltwater gargles Follow-up with your primary doctor Return for new or worsening symptoms You should throat your toothbrush out after you take her last dose of antibiotics Prescriptions: New amoxicillin-pot clavulanate 875-125 mg tablet 1 tab PO BID Qty: 14 0RF No Action ondansetron 4 mg tablet,disintegrating 4 mg PO Q8H PRN (Reason: nausea and vomiting) Qty: 10 0RF dicyclomine 10 mg capsule 10 mg PO TID PRN (Reason: abdominal pain) Qty: 14 0RF ondansetron HCl 4 mg tablet 4 mg PO Q8H PRN (Reason: nausea and vomiting) Qty: 10 0RF benzonatate 100 mg capsule 100 mg PO BID PRN (Reason: cough) 7 Days Qty: 14 0RF Nexplanon 68 mg implant subdermal
== END 2023-04-06 16:56 | disposition home or self-care (01) ==
LOC: HO.ED 16:52
PROVIDERS: Emergency Provider Emergency Medicine Emergency Medical Services; PCP Internal Medicine
DX: J02.0 Streptococcal pharyngitis (principal)
CPT/HCPCS: 99282; 99283

== ENCOUNTER 2023-07-05 12:57 | Outpatient (AMB) | payer OTHER, SELFPAY ==
--- NOTE | 2023-07-05 13:25 | AM.OFFVISNUR ---
Intake Intake Visit Reasons: PPd Plant Allergies No Known Allergies Allergy (Verified 12/23/22 09:56) Office Meds tuberculin PPD 5 tub. unit/0.1 mL intradermal injection solution Performing Provider: Marizol Pimentel MD [facility] Administered by: Janeen Michele RN on 07/05/23 13:25 Dose Route Admin Location Dispensed Lot Number Expiration Date NDC [employer] Operator 0.1 mL intradermal 0.1 mL [id number] 07/05/23 [id number] [employer] Coding Assessment & Plan Assessment & Plan Orders: Orders AMB PPD Planted Today Z11.1 - Encounter for screening for respiratory tuberculosis Medications: New tuberculin PPD 0.1 mL intradermal ONCE 0.1 mL 0RF Z11.1 - Encounter for screening for respiratory tuberculosis
== END 2023-07-05 13:29 | disposition home or self-care (01) ==
PROVIDERS: PCP Internal Medicine; Visit Provider Internal Medicine
DX: Z11.1 Encounter for screening for respiratory tuberculosis (principal)
CPT/HCPCS: 86580

== ENCOUNTER 2023-09-06 14:01 | Outpatient (AMB) | payer OTHER, SELFPAY ==
--- NOTE | 2023-09-06 14:02 | A.OFFVIS_ITS ---
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 At 1st she did not think she did STI check she says her boyfriend has cheated on her multiple times including somewhat recently.. She says she lost 14 lb without even trying the winter and can not figure out why but on reviewing life issues she has had multiple job changes and her partner cheated on her multiple times so there could be a variety of reasons. She says she does have a primary care provider but the visits are somewhat quick she has not sure the blood tests ordered or not. She thinks she may have a job change occurring that will allow her better mommy hours and have weekends etc.. Currently her job has no flexibility of sched uling and she learns her scheduled a week before. She has a Nexplanon in and she does not think she has had any negative side effects at all she has not gotten her period on it it was inserted by another provider up the hospital January of 2021. She thinks she would like another 1 but she has not exactly certain she does not want to get right now so that is clear She used to have a therapist but felt like the feedback she was getting is not as helpful as it could have been. [facility] Medical History Ear infection Febrile seizures Deaf Obesity (BMI 30.0-34.9) Iron deficiency anemia Anxiety Surgical History No history of previous surgery Family History Paternal Grandmother Diabetes mellitus HTN (hypertension) CVD (cardiovascular disease) Maternal Grandmother Diabetes mellitus HTN (hypertension) Skin cancer Father Diabetes mellitus HTN (hypertension) Maternal Aunt Diabetes mellitus HTN (hypertension) Breast CA Mother Thyroid disease Social History Housing: Apartment Alcohol intake: never Patient Tobacco Use Status: Former Tobacco user Tobacco use type: Cigarette e-Cigarette/Vaping Use: Never Used Second Hand Smoke Exposure: No service: No Current occupational status: employed Current occupational exposures/hazards: No Gender identity: Female Cognitive needs: No Hearing needs: No Vision needs: Yes Female Reproductive History Menstrual Age of Menarche: 12 Duration of menses: <3 days control method: implanted Total pregnancies: 1 Full term: 1 Date of last pap smear: 08/18/21 (negative) History of abnormal pap smear: No Physical Exam Vital Signs: Last Vital Signs BP 100/62 09/06/23 14:07 BMI result Body Mass Index 28.9 Const Other: Nexplanon is in place in left arm inappropriate site.. Patient has beautifully colored rainbow hair. Increased body hirsutism noted General: healthy appearing, comfortable, no acute distress, well developed and alert Nutritional Appearance: average body habitus Orientation/consciousness: patient oriented x3 Limitations: no limitations HEENT Head: Yes normocephalic Neck Neck: Yes normal visual inspection Chest Chest palpation & inspection: normal inspection of the chest Breast/axilla inspection: normal inspection of the breasts and normal inspection of the axillae Breast/axilla palpation: normal palpation of the breasts and normal palpation of the axillae Resp Effort & Inspection: normal respiratory effort GI Inspection: Yes normal to inspection, No Abdominal wall edema and No distended Palpation (GI): Soft to palpation and nontender Other: External exam within normal limits. Vagina pink and moist cervix multiparous pink smooth uterus small retroverted firm mobile nontender adnexa nontender slightly weak tone with Kegel coached in Kegel's. General: Yes bladder normal to palpation External Female Exam: normal external appearance and normal appearance of the urethra Speculum Exam - Vagina: normal appearance of the vagina, normal palpation and normal vaginal discharge Speculum Exam - Cervix: normal appearance of the cervix, normal palpation and nontender Bimanual exam- vagina & uterus: normal bimanual exam, normal palpation, uterine size normal, bladder normal to palpation, consistency normal, normal palpation, uterine mobility normal, uterine shape normal, No Cervical tenderness present, non-tender and no cervical motion tenderness Bimanual Exam- Adnexa, other: normal adnexae, no masses, normal and No adnexal tenderness Neuro General: patient oriented x3 Results Reviewed Results Reviewed: Name: Meggan Song Age/Sex: 26/F Attending: Rachel Ashley CNM : 1995 Submitted by: Rachel Ashley CNM Copies to: MR #: [id number] Status: DEP REF Collected: 08/18/21 Location: .LAB Received: 08/19/21 Interpretation Satisfactory for evaluation. Negative for intraepithelial lesion or malignancy. Clinical Information LMP: Unknown Date Previous PAP test: Unknown Date, WNL Material Received ThinPrep Cervical Electronically Signed By: SHANNON Osullivan (ASCP) 09/02/21 0944 The Pap Test is a screening procedure with the inherent possibility of both false negative and false positive results. Results should be interpreted in the context of historic and current clinical findings. Reliability of the Pap Test is enhanced by performing the test on a regular repetitive basis. Patient: Meggan Song Age/Sex: 26/F MR#: [id number] Page 1 of 1 Assessment & Plan Assessment & Plan (1) Well woman exam with routine gynecological exam: Code(s): Z01.419 - Encounter for gynecological examination (general) (routine) without abnormal findings Category: Medical (2) Cervical cancer screening: Comment: [facility] 08[facility]21= negative Code(s): Z12.4 - Encounter for screening for malignant neoplasm of cervix Category: Medical (3) Potential exposure to STD: Code(s): Z20.2 - Contact with and (suspected) exposure to infections with a predominantly sexual mode of transmission Category: Medical (4) Etonogestrel implant for control: Comment: inserted 01/05/21 by BM. due for replacement 01/27.... Category: Social Hx Plan -----Discussed in this visit the following: healthy balanced diet, regular and consistent exercise, getting recommended health screens, doing the best she can for her particular health concerns, kegel exercises, pap smear screening and followup recommendations, mammography screening and SBE, normal changes in cycles in her life stage--- . Strongly suggested seeking out a new therapist to help her with decisions and issues around her relationship she openly states that she is feeling disrespected in the relationship and has just come to terms with thinking that this relationship this not want to be lasting much longer discussed Nexplanon in she used to decide whether she wants to have it replaced and whether not she wan ts another reliable method of control. If she does she would need to come to the office and sign consent form she order it for her insurance a month or 2 ahead of time and then arrange for replacement in the fall. She has not due for Pap smear so that was not done, but testing for STIs was done and offered. Orders: Orders Bacterial Vaginosis Panel Today N89.8 - Other specified noninflammatory disorders of vagina Hepatitis C Antibody Today Z01.419 - Encounter for gynecological examination (general) (routine) without abnormal findings, Z12.4 - Encounter for screening for malignant neoplasm of cervix, Z20.2 - Contact with and (suspected) exposure to infections with a predominantly sexual mode of transmission Syphilis Screen Today Z01.419 - Encounter for gynecological examination (general) (routine) without abnormal findings, Z12.4 - Encounter for screening for malignant neoplasm of cervix, Z20.2 - Contact with and (suspected) exposure to infections with a predominantly sexual mode of transmission CT NG by PCR Today N89.8 - Other specified noninflammatory disorders of vagina, Z11.3 - Encounter for screening for infections with a predominantly sexual mode of transmission Hepatitis B Surface Antigen Today Z01.419 - Encounter for gynecological examination (general) (routine) without abnormal findings, Z12.4 - Encounter for screening for malignant neoplasm of cervix, Z20.2 - Contact with and (suspected) exposure to infections with a predominantly sexual mode of transmission HIV Ab/Ag Today Z01.419 - Encounter for gynecological examination (general) (routine) without abnormal findings, Z12.4 - Encounter for screening for malignant neoplasm of cervix, Z20.2 - Contact with and (suspected) exposure to infections with a predominantly sexual mode of transmission Coding Level of Care Code Est Pt Prev Care 18-39y(80501) Diagnoses Well woman exam with routine gynecological exam Z01.419 Cervical cancer screening Z12.4 Potential exposure to STD Z20.2 Etonogestrel implant for control
[2023-09-06 14:07] VITALS: BP 100/62; BMI 28.9
== END 2023-09-06 14:55 | disposition home or self-care (01) ==
LOC: HO.HWSM 14:01
PROVIDERS: PCP Internal Medicine; Visit Provider Advanced Practice Midwife
DX: Z01.419 Encounter for gynecological examination (general) (routine) without abnormal findings (principal); Z12.4 Encounter for screening for malignant neoplasm of cervix; Z20.2 Contact with and (suspected) exposure to infections with a predominantly sexual mode of transmission
CPT/HCPCS: 99395

== ENCOUNTER 2023-09-06 14:01 | Outpatient (REF) | payer OTHER, SELFPAY ==
[2023-09-07 06:02] LABS: CT PCR NOT DETECTED (Not Detect.); NG PCR NOT DETECTED (Not Detect.)
[2023-09-07 09:07] LABS: Bacterial Vaginosis PCR NEGATIVE (Negative); Candida Group PCR NOT DETECTED (Not Detect); Candida glab krusei PCR NOT DETECTED (Not Detect); Trichomonas vaginalis PCR NOT DETECTED (Not Detect)
== END 2023-09-06 14:02 | disposition home or self-care (01) ==
LOC: HO.LAB 14:01
PROVIDERS: PCP Internal Medicine; Visit Provider Advanced Practice Midwife
DX: Z11.3 Encounter for screening for infections with a predominantly sexual mode of transmission (principal); N89.8 Other specified noninflammatory disorders of vagina; Z20.2 Contact with and (suspected) exposure to infections with a predominantly sexual mode of transmission
CPT/HCPCS: 0352U; 87491; 87591; 99395

== ENCOUNTER 2023-10-26 16:11 | Outpatient (AMB) | payer OTHER, SELFPAY ==
[2023-10-26 16:14] VITALS: BP 102/70; BMI 29.6
--- NOTE | 2023-10-26 16:14 | A.OFFPC_ITS ---
Vital Signs 10/26/23 16:14 Height 5 ft 3 in Weight 167 lb BMI 29.6 BP 102/70 Blood Pressure Location Lt brachial Position Sitting Intake Visit Reasons: pe Intake Note: Patient here for a physical exam Subacute Nurse Required: No Accompanied by: Self / Same As Patient Allergies No Known Allergies Allergy (Verified 10/26/23 16:23) Medication List - Last Reconciled 10/26/23 by Marizol Pimentel MD etonogestrel (Nexplanon) implant subdermal Tobacco use date assessed: 10/26/23 Dental Screening Dental Screen Date: 10/26/23 Did you have a dental visit in the last 12 months?: No Did you have a dental problem in the last 6 months where you did not have access to dental care?: No Was dental information given to patient?: Patient has dentist HPI HPI Comments History of Present Illness Details This is a 28-year-old female with moderate recurrent major depression that comes for her physical exam. She declines counseling or treatment. No suicidal thoughts. Last Pap smear was 2021. She complains of diarrhea that has been present for years on a daily basis. I will refer her to [facility]. [facility] Medical History Ear infection Febrile seizures Deaf Obesity (BMI 30.0-34.9) Iron deficiency anemia Anxiety Surgical History No history of previous surgery Family History Paternal Grandmother Diabetes mellitus HTN (hypertension) CVD (cardiovascular disease) Maternal Grandmother Diabetes mellitus HTN (hypertension) Skin cancer Father Diabetes mellitus HTN (hypertension) Maternal Aunt Diabetes mellitus HTN (hypertension) Breast CA Mother Thyroid disease Social History Housing: Apartment Alcohol intake: never Patient Tobacco Use Status: Former Tobacco user Tobacco use type: Cigarette e-Cigarette/Vaping Use: Never Used Second Hand Smoke Exposure: No service: No Current occupational status: employed Current occupational exposures/hazards: No Gender identity: Female Cognitive needs: No Hearing needs: No Vision needs: Yes Female Reproductive History Menstrual Age of Menarche: 12 Questionnaire PHQ-9 Over the last 2 weeks, how often have you been bothered by any of the following problems? 1. Little interest or pleasure in doing things: nearly every day 2. Feeling down, depressed, or hopeless: nearly every day 3. Trouble falling or staying asleep, or sleeping too much: not at all 4. Feeling tired or having little energy: nearly every day 5. Poor appetite or overeating: several days 6. Feeling bad about yourself - or that you are a failure or have let yourself or your family down: nearly every day 7. Trouble concentrating on things, such as reading the newspaper or watching television: several days 8. Moving or speaking so slowly that other people could have noticed. Or the opposite - being so fidgety or restless that you have been moving around a lot more than usual: not at all 9. Thoughts that you would be better off or of hurting yourself in some way: not at all Total score: 14 Depression Screening Interpretation: Positive Depression Screening Follow-up: Existing condition and Follow-up Visit Requested Depression Screening Done: Yes 63262 - PHQ-9 Billing: Yes Source: Developed by Drs. Bart Ford, Chyna Osorio, Antwon Santana and colleagues, with an educational rachel from [employer]. Thrive Questionnaire Date Thrive assessed: 10/26/23 I am a: Patient What is your living situation today?: I have a steady place to live Within the past 12 months, did the food you bought not last and you didn't have the money to get more?: Never true Within the past 12 months, did you worry whether your food would run out before you got money to buy more?: Never true Do you have trouble paying for medicines?: No Do you have trouble getting transportation to medical appointments?: No Do you have trouble paying your heating and electricity bill?: No Do you have trouble taking care of your child, family member or friend?: No Do you have trouble with day-to-day activities such as bathing, preparing meals, shopping, managing finances, etc.?: No Are you currently unemployed and looking for a job?: No Are you interested in more education?: No Please select the resources that you would like help with: None Currently or been in a relationship where the following occur: No concerns reported THRIVE Score: 0 AUDIT C Alcohol Use Questionnaire (AUDIT-C) 1. How often do you have a drink containing alcohol?: Never Total Score: 0 Score Reviewed/Action Taken: No ALY-7 AMB Questionnaire ALY-7 Date ALY - 7 assessed: 10/26/23 Feeling nervous, anxious, or on edge: 3 = Nearly every day Not being able to stop or control worryin = Several days Worrying too much about different things: 3 = Nearly every day Trouble relaxin = Not at all Being so restless that it is hard to sit still: 0 = Not at all Becoming easily annoyed or irritable: 2 = More than half the days Feeling afraid as if something awful might happen: 1 = Several days Total ALY-7 score (0-4 normal; 5-9 mild; 10-14 moderate; 15-21 severe): 10 Source: Developed by Drs. Bart Ford, Chyna Osorio, Antwon Santana and colleagues, with an educational rachel from [employer]. ALY-7 Assessment Billing ALY-7 Assessment Tool: ALY-7 Assessment 47431 Review of Systems Const All systems reviewed & are unremarkable except as noted in HPI and below Card Denies chest pain at rest, Denies chest pain with activity, Denies edema, Denies irregular heart rhythm, Denies claudication, Denies dyspnea, Denies dyspnea on exertion, Denies orthopnea, Denies paroxysmal nocturnal dyspnea and Denies slow heart rate Resp Denies cough, Denies dyspnea and Denies dyspnea on exertion GI Denies abdominal pain, Denies change in bowel habits, Denies excessive flatus, Reports diarrhea, Denies nausea and Denies vomiting Denies urinary incontinence, Denies urinary hesitancy and Denies urinary urgency Musc Denies abnormal gait, Denies atrophy, Denies deformity and Denies limited range of motion Skin/Breast Denies bleeding lesions, Denies changing lesions and Denies rash Neuro Denies abnormal gait, Denies confusion and Denies lack of coordination Psych Denies confusion Physical exam (Primary Care) Vital Signs: Last Vital Signs BP 102/70 10/26/23 16:14 BMI result Body Mass Index 29.6 Tobacco/Smoking Status: Tobacco use Status Tobacco use date assessed 10/26/23 10/26/23 16:21 Patient Tobacco Use Status Former Tobacco user 10/26/23 16:19 Tobacco use type Cigarette 10/26/23 16:19 e-Cigarette/Vaping Use Never Used 10/26/23 16:19 PHQ-9: PHQ-9 Score PHQ-9: Total score 14 10/26/23 16:28 Depression Screening Interpretation: Positive Depression Screening Follow-up: Existing condition and Follow-up Visit Requested Thrive Assessment: Date of Thrive Assessment Date Thrive assessed 10/26/23 10/26/23 16:19 Currently or been in a relationship where the following occur: No concerns reported Const General: No confusion Orientation/consciousness: patient oriented x3 and No confusion HENMT Head: Yes normal to inspection, Yes normocephalic and Yes atraumatic Ears: external ears normal Eyes General: appearance normal, both eyes and all related structures Eyelids: Yes eyelids normal Conjunctivae: conjunctivae normal Neck Neck: Yes normal visual inspection and Yes supple Resp Effort & Inspection: normal respiratory effort Auscultation: clear to auscultation bilaterally Cardio Jugular venous distension: no JVD Rate: regular rate Rhythm: regular rhythm Heart sounds: S1 normal heart sound present and S2 normal heart sound present GI Inspection: Yes normal to inspection Palpation (GI): Soft to palpation and nontender Auscultation: normal bowel sounds Skin General skin exam: no rashes or lesions noted Neuro General: patient oriented x3, no focal motor deficits and No confusion Extrem General: Yes full ROM Psych Appearance: grossly normal Assessment and Plan Assessment & Plan (1) Physical exam: Code(s): Z00.00 - Encounter for general adult medical examination without abnormal findings Plan: Repeat in a year. (2) Moderate recurrent major depression: Code(s): F33.1 - Major depressive disorder, recurrent, moderate Plan: Declines treatment. (3) Diarrhea: Comment: Intermittent loose stool, maybe function trial Imodium Code(s): R19.7 - Diarrhea, unspecified Plan: Referred to [facility]. Orders: Orders Celiac Disease Panel Today R19.7 - Diarrhea, unspecified Thyroid Stimulating Hormone Today R19.7 - Diarrhea, unspecified Lipid Panel Today E78.5 - Hyperlipidemia, unspecified, Z00.00 - Encounter for general adult medical examination without abnormal findings Comprehensive [place]. Panel Fast Today Z00.00 - Encounter for general adult medical examination without abnormal findings Complete Blood Count Auto Diff Today R19.7 - Diarrhea, unspecified Referrals Gastroenterology Referral R19.7 - Diarrhea, unspecified Coding Level of Care Code Est Pt Level 3 (11327) Est Pt Prev Care 18-39y(78988) Diagnoses Physical exam Z00.00 Moderate recurrent major depression F33.1 Diarrhea R19.7 Additional Codes ALY-7 Assessment Billing - ALY-7 Assessment Tool: ALY-7 Assessment 84425 ([id number]) Time Spent (min) 33
== END 2023-10-26 16:38 | disposition home or self-care (01) ==
LOC: HO.HMGH 16:11
PROVIDERS: PCP Internal Medicine; Visit Provider Internal Medicine
DX: Z00.00 Encounter for general adult medical examination without abnormal findings (principal); F33.1 Major depressive disorder, recurrent, moderate; R19.7 Diarrhea, unspecified
CPT/HCPCS: 99213; 99395

== ENCOUNTER 2023-12-05 08:00 | Outpatient (REF) | payer OTHER, SELFPAY | END 2023-12-05 08:01 | disposition home or self-care (01) | LOC: HO.SH 08:00 | PROVIDERS: Visit Provider Internal Medicine | DX: Z01.118 Encounter for examination of ears and hearing with other abnormal findings (principal); H90.3 Sensorineural hearing loss, bilateral | CPT/HCPCS: 92557; 92567; 92588 ==

== ENCOUNTER 2024-01-12 14:00 | Outpatient (AMB) | payer OTHER, SELFPAY ==
--- NOTE | 2024-01-12 14:20 | MHC.OFFVIS ---
Intake Visit Reasons: BC Consult(wants nexplanon removed) Allergies No Known Allergies Allergy (Verified 01/12/24 14:32) Medication List - Last Reconciled 01/12/24 by Rachel Ashley CNM etonogestrel (Nexplanon) implant subdermal Is last menstrual period known: No (nexplanon) HPI HPI BC Consult(wants nexplanon removed): Details: Patient is here because she wants her Nexplanon removed she said she has talked about it with her boyfriend and they decided to have another baby there and therapy together and she said things are very good and they have sex almost every day. She said that the therapist thinks they are doing well to she said before this the therapist was saying that her boyfriend wanted to live life as a single person but also be in a relationship and things are better now.. Her son is 4 years old. She has lost weight by not trying this past year she was in very stressful job she new job for 8 days but that did not work out now she is job that she finds very easy. 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 She does not however want go to [facility] but then I told her that [facility] she said she she denies medical presence in previous though I did tell her if she did develop in the medical problems she would be transferred. Her Nexplanon is in left arm she has started spotting for the last 2 months around the time of a period. She had some cramping once too. [facility] Medical History Ear infection Febrile seizures Deaf Obesity (BMI 30.0-34.9) Iron deficiency anemia Anxiety Surgical History No history of previous surgery Family History Paternal Grandmother Diabetes mellitus HTN (hypertension) CVD (cardiovascular disease) Maternal Grandmother Diabetes mellitus HTN (hypertension) Skin cancer Father Diabetes mellitus HTN (hypertension) Maternal Aunt Diabetes mellitus HTN (hypertension) Breast CA Mother Thyroid disease Social History Housing: Apartment Alcohol intake: never Patient Tobacco Use Status: Former Tobacco user Tobacco use type: Cigarette e-Cigarette/Vaping Use: Never Used Second Hand Smoke Exposure: No service: No Current occupational status: employed Current occupational exposures/hazards: No Gender identity: Female Cognitive needs: No Hearing needs: No Vision needs: Yes Female Reproductive History Menstrual Age of Menarche: 12 Duration of menses: 3-5 days control method: implanted Total pregnancies: 1 Full term: 1 Physical Exam Const Other: Nexplanon palpable left Assessment & Plan Assessment & Plan (1) Encounter for monitoring of etonogestrel implant: Comment: This Nexplanon was inserted 01/05/2021. Code(s): Z30.46 - Encounter for surveillance of implantable subdermal contraceptive Category: Medical (2) Patient desires : Code(s): Z31.9 - Encounter for procreative management, unspecified Category: Medical Plan Patient is very clear she wants another baby with her boyfriend. She says her periods were awful they were painful crampy heavy soaking through pads clothes and becoming very expensive before the Nexplanon. This is what they were like before she had the Nexplanon put in however she still wants it out to have a baby. She says she is having sex every day discussed paying attention keeping track of everything including all symptoms and bleeding and what happens with her menses wants the Nexplanon is removed. She will be scheduled for soon she was given an appointment for the 14th for Nexplanon removal I recommend she start multivitamins with folic acid and really work hard not gaining any weight back as that will be not good for her and influence her menses as well. Coding Level of Care Code Est Pt Level 3 (94139) Diagnoses Encounter for monitoring of etonogestrel implant Z30.46 Patient desires Z31.9
== END 2024-01-12 15:03 | disposition home or self-care (01) ==
PROVIDERS: PCP Internal Medicine; Visit Provider Advanced Practice Midwife
DX: Z30.46 Encounter for surveillance of implantable subdermal contraceptive (principal); Z31.9 Encounter for procreative management, unspecified
CPT/HCPCS: 99213

== ENCOUNTER → 2024-01-12 14:00 | Outpatient (BNVA) | payer OTHER, SELFPAY | PROVIDERS: PCP Internal Medicine; Visit Provider Advanced Practice Midwife | DX: Z30.46 Encounter for surveillance of implantable subdermal contraceptive (principal); Z31.9 Encounter for procreative management, unspecified | CPT/HCPCS: 99212 ==

== ENCOUNTER 2024-01-18 09:30 | Outpatient (AMB) | payer OTHER, SELFPAY ==
[2024-01-18 09:35] VITALS: BP 112/60; BMI 27.8
--- NOTE | 2024-01-18 09:35 | A.OFFVIS_ITS ---
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 They are very sexually active at least every night and they want to have another baby she is here by herself on her way to work she is very clear that she wants to get as soon as she can she says she is taking vitamins with folic acid and eating well. PFS Medical History Ear infection Febrile seizures Deaf Obesity (BMI 30.0-34.9) Iron deficiency anemia Anxiety Surgical History No history of previous surgery Family History Paternal Grandmother Diabetes mellitus HTN (hypertension) CVD (cardiovascular disease) Maternal Grandmother Diabetes mellitus HTN (hypertension) Skin cancer Father Diabetes mellitus HTN (hypertension) Maternal Aunt Diabetes mellitus HTN (hypertension) Breast CA Mother Thyroid disease Social History Housing: Apartment Alcohol intake: never Patient Tobacco Use Status: Former Tobacco user Tobacco use type: Cigarette e-Cigarette/Vaping Use: Never Used Second Hand Smoke Exposure: No service: No Current occupational status: employed Current occupational exposures/hazards: No Gender identity: Female Cognitive needs: No Hearing needs: No Vision needs: Yes Female Reproductive History Menstrual Age of Menarche: 12 Duration of menses: <3 days Date of last menstrual period: 12/28/23 control method: implanted Total pregnancies: 1 Full term: 1 Physical Exam Vital Signs: Last Vital Signs BP 112/60 01/18/24 09:35 BMI result Body Mass Index 27.8 Office Procedures Contraception Insert/Removal Details Details: Nexplanon Removal Procedure The patient was placed in a supine position with her non dominant hand resting under her head. The insertion site was located: 8-10cm from the medial epicondyle notch of the humerus, posterior to the sulcus, between the triceps and biceps muscle. The area of the previous implant was identified and the distal tip located. This area was cleansed with an alcohol prep and 3 ml of 1% Lidocaine on a 25 gauge needle and syringe was utilized for adequate anesthesia to the insertion site. After ascertaining adequate anesthesia, the area was prepped with Betadine solution. The skin over the distal tip was incised with a #11 blade scalpel and the capsule was located and entered freeing the implant from the canal. The implant was removed with a gentle tug using a mosquito clamp and removed intact. Direct pressure was applied to the insertion site for hemostasis, minimal bleeding was observed. Steri strips, Tegaderm covering, gauze pads, and Umriel wrap dressing were secured with paper tape. The implant was palpable underneath the skin by myself and the patient. The patient tolerated the procedure well and left the office in good condition. 73834 - Removal Results AMB Test Urine AMB Test Urine Negative Last Edit by Suhail Shi CMA on 01/18/24 10:27 Results Reviewed Results Reviewed: Name: Meggan Song Age/Sex: 26/F Attending: Rachel Ashley CNM : 1995 Submitted by: Rachel Ashley CNM Copies to: MR #: [id number] Status: DEP REF Collected: 08/18/21 Location: .LAB Received: 08/19/21 Interpretation Satisfactory for evaluation. Negative for intraepithelial lesion or malignancy. Clinical Information LMP: Unknown Date Previous PAP test: Unknown Date, WNL Material Received ThinPrep Cervical Electronically Signed By: SHANNON Osullivan ([facility]) 09/02/21 0944 The Pap Test is a screening procedure with the inherent possibility of both false negative and false positive results. Results should be interpreted in the context of historic and current clinical findings. Reliability of the Pap Test is enhanced by performing the test on a regular repetitive basis. Patient: Meggan Song Age/Sex: 26/F MR#: [id number] Page 1 of 1 Assessment & Plan Assessment & Plan (1) Encounter for monitoring of etonogestrel implant: Comment: This Nexplanon was inserted 01/05/2021./removed 01/18/2024, because patient desires . Code(s): Z30.46 - Encounter for surveillance of implantable subdermal contraceptive Category: Medical (2) Patient desires : Code(s): Z31.9 - Encounter for procreative management, unspecified Category: Medical (3) Encounter for Nexplanon removal: Code(s): Z30.46 - Encounter for surveillance of implantable subdermal contraceptive Category: Medical Plan See the procedure section for the removal of the Nexplanon it went very smoothly. 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 She is taking vitamins with folic acid she feels ready to embark on having another baby and she is excited for the prospect.. I reviewed what to do if there signs or symptoms of infection she should seek urgent or emergent care. I do not expect that as it was all done under sterile technique and we will see her when she needs to be seen. Orders: Orders AMB Nexplanon/Implanon Insertion - Patient Supply Today Z30.46 - Encounter for surveillance of implantable subdermal contraceptive, Z31.9 - Encounter for procreative management, unspecified Coding Level of Care Code Est Pt Level 3 (32764) Diagnoses Encounter for monitoring of etonogestrel implant Z30.46 Patient desires Z31.9 Encounter for Nexplanon removal Z30.46 CPT Codes Details - Contraception: 85946 - Removal ([id number])
== END 2024-01-18 10:27 | disposition home or self-care (01) ==
PROVIDERS: PCP Internal Medicine; Visit Provider Advanced Practice Midwife
DX: Z30.46 Encounter for surveillance of implantable subdermal contraceptive (principal); Z32.02 Encounter for pregnancy test, result negative
CPT/HCPCS: 11982

== ENCOUNTER → 2024-01-18 09:30 | Outpatient (BNVA) | payer OTHER, SELFPAY | PROVIDERS: PCP Internal Medicine; Visit Provider Advanced Practice Midwife | DX: Z30.46 Encounter for surveillance of implantable subdermal contraceptive (principal) | CPT/HCPCS: 11982; 81025 ==

== ENCOUNTER 2024-03-12 10:51 | Emergency (ER) | payer OTHER, SELFPAY ==
--- NOTE | ~2024-03-12 | CT_ITS ---
CLINICAL HISTORY: lower abd pain, vomiting x1 week CT abdomen and pelvis with contrast Comparison: US/NM/SR - US ABDOMEN LIMITED - 12/23/22 12:41 EDT Findings: No consolidation at the lung bases. Unremarkable gallbladder. Underdistended bladder. Focal fat at the falciform ligament. Subcentimeter low attenuating lesion in the liver which is too small to characterize. Retroverted uterus. The other solid organs are unremarkable. No bowel dilation. No definitive bowel wall thickening; there is underdistention of portions of the small bowel and colon. A normal appendix is identified. Normal vasculature. No lymphadenopathy. No ascites. No acute osseous abnormality. Impression: No acute findings. This document has been electronically signed by: Yenni Clifton MD on 03/12/2024 16:50:54
[2024-03-12 11:30] VITALS: BP 119/81; PULSE 85; RESP 18; TEMP 36.8; O2SAT 96; BMI 26.8
--- NOTE | 2024-03-12 11:34 | ED_ITS ---
HPI - General Adult General Chief complaint: Abdominal Pain Stated complaint: Vomiting, abd pain Time Seen by Provider: 03/12/24 15:29 Source: patient Mode of arrival: ambulatory Limitations: no limitations History of Present Illness ED Provider: Teresa Gill PA-C HPI narrative: 29 yo female with history of PTSD, IBS, UTI, iron deficiency anemia, who presents to the ER for evaluation of lower abdominal pain that started when she woke up this morning along with about 7 days of daily nausea and vomiting. She was worried she was . She also reports 1 episode of nonbloody stool this morning. She reports the pain is across her entire lower abdomen, waxes and wanes. No urinary symptoms, fever, chills. No known sick contacts. She denies illicit drug use. She has been feeling weak and shakey, not able to tolerate much PO. MD complaint: lower abdominal pain, vomiting Onset (ago): day(s) Location: abdomen Radiation: non-radiation Severity: moderate Severity scale (1-10): 7 Quality: stabbing Pain Consistency: intermittent Relieving factors: none Exacerbating factors: none Associated symptoms: loss of appetite, malaise and weakness Treatments prior to arrival: none Related Data Home Medications ?Medication ?Instructions ?Recorded ?Confirmed etonogestrel 68 mg subdermal implant subdermal 03/19/21 01/18/24 implant (Nexplanon) Previous Rx's ?Medication ?Instructions ?Recorded ondansetron HCl 4 mg tablet 4 mg PO Q8H PRN nausea and 03/12/24 vomiting #14 tabs Allergies Allergy/AdvReac Type Severity Reaction Status Date / Time No Known Allergies Allergy Verified 03/12/24 11:33 Review of Systems 2 Review of Systems: Yes all other systems are reviewed and are negative [facility] Past Medical History Medical History Ear infection Febrile seizures Deaf Obesity (BMI 30.0-34.9) Iron deficiency anemia Anxiety Surgical History No history of previous surgery Family History Family History Paternal Grandmother Diabetes mellitus HTN (hypertension) CVD (cardiovascular disease) Maternal Grandmother Diabetes mellitus HTN (hypertension) Skin cancer Father Diabetes mellitus HTN (hypertension) Maternal Aunt Diabetes mellitus HTN (hypertension) Breast CA Mother Thyroid disease Social History Social History (Reviewed 01/18/24 @ 09:36 by Suhail Shi [facility]) Housing: Apartment Alcohol intake: never Patient Tobacco Use Status: Former Tobacco user Tobacco use type: Cigarette e-Cigarette/Vaping Use: Never Used Second Hand Smoke Exposure: No service: No Current occupational status: employed Current occupational exposures/hazards: No Gender identity: Female Cognitive needs: No Hearing needs: No Vision needs: Yes Physical Exam ED Vital Signs: Vital Signs - 24 hr 03/12/24 11:30 03/12/24 18:01 03/12/24 18:19 Temperature 98.2 F 97.8 F 97.8 F Pulse Rate 85 71 71 Respiratory Rate 18 18 18 Blood Pressure 119/81 104/74 104/74 Pulse Oximetry 96 98 98 Oxygen Delivery Method Room Air Room Air BMI result Body Mass Index 26.8 Appearance: Alert. Oriented X3. Appears uncomfortable Head: normocephalic, atraumatic. Eyes: Pupils equal, round and reactive to light. ENT: Pharynx normal. No tonsillar swelling or exudate. Neck: Normal inspection. Neck supple. CVS: Normal heart rate and rhythm. Pulses normal. Respiratory: No respiratory distress. Breath sounds normal. Abdomen: Soft with lower abdominal tenderness, no rebound or guarding, normal active +BS x4 Skin: Skin warm and dry. Normal skin color. Normal skin turgor. No rashes. Extremities: No lower extremity edema. No joint swelling. Neuro/psych: Oriented X 3. No motor deficit. No sensory deficit. CN II-XII intact. Normal speech and cognition. Course Course Course Narrative: RME: 29-year-old female presents to ED nausea, vomiting, 1 episode diarrhea, and mild lower abdominal pain for a couple of days. Patient denies any genitourinary symptoms. Abdomen is benign soft and nontender. Negative CVA or flank. Labs ordered. Reevaluation(s) Reevaluation #1: CT abdomen with no acute findings. I took over patient's care from previous provider only thing pending was a CT. CBC with leukocytosis no left shift. Chemistry with no acute electrolyte abnormalities needing intervention. Normal transaminases. UA without infection. Urine negative. Educated patient on diagnosis and treatment plan, answered all question, patient verbalizes understanding. At this time patient will be discharged home, advised to return with new or worsening symptoms. Educated on worrisome signs and symptoms and when to return. At this time I feel comfortable discharge home. Time: 17:50 Medications Administered Discontinued Medications Generic Name Dose Route Start Last Admin Trade Name Fredrick PRN Reason Stop Dose Admin Iohexol 100 ml 03/12/24 16:13 03/12/24 16:13 Iohexol 350 Mg/Ml 100 Ml Infus..Btl IV 03/12/24 16:14 85 ml ONCE ONE Administration Ketorolac Tromethamine 15 mg 03/12/24 15:52 03/12/24 16:00 Ketorolac Tromethamine 15 Mg/Ml Vial IVPUSH 03/12/24 15:53 Not Given ONCE ONE Ondansetron HCl 4 mg 03/12/24 15:29 03/12/24 15:43 Ondansetron Odt 4 Mg Tab.Rapdis TRANSLINGU 03/12/24 15:30 Not Given ONCE ONE Medical Decision Making Medical Decision Making [facility] Narrative: 29-year-old female presents to the ER for evaluation of lower abdominal pain that started yesterday along with daily nausea and vomiting for the last 1 week. Lab workup with very mild leukocytosis of 11.6. LFTs and lipase are unremarkable. test is negative. Urinalysis negative for infection. IV antiemetics and pain medications were ordered however patient is refusing all treatment until she ?knows what is wrong with her. ? Given her abdominal pain and tenderness on examination a CT scan of her abdomen was ordered. Results are pending Differential Diagnosis Differential Diagnoses: The differential diagnosis associated with the presentation includes gastroenteritis, colitis, UTI, , diverticulitis, hyperemesis syndrome Admission/Observation Consideration of admission/observation: Escalation of care including admission/observation considered Lab Data [facility] Lab Attestation statement: I reviewed the patient's lab results. Mild leukocytosis, chronic elevation of bilirubin, normal LFTs and lipase, negative hormone 03/12/24 12:19 03/12/24 12:19 Labs: Lab Results 03/12/24 03/12/24 Range/Units 12:19 15:35 WBC 11.6 H (4.8-10.8) X10*3/uL RBC 5.09 (4.20-5.50) X10*6/uL Hgb 15.0 (12.0-16.0) g/dl Hct 44.2 (37.0-47.0) % MCV 86.8 (80.0-98.0) fL MCH 29.5 (27.0-33.0) pg MCHC 33.9 (31.0-35.0) g/dl RDW 12.6 (11.0-16.0) % Plt Count 334 (160-400) X10*3/uL MPV 10.8 (9.4-12.3) fL Immature Gran % (Auto) 0.3 (0.0-0.4) % Neut % (Auto) 79.1 H (45-73) % Lymph % (Auto) 16.4 L (20-40) % [place] % (Auto) 3.5 (2-11) % Eos % (Auto) 0.3 (0-4) % Baso % (Auto) 0.4 (0-2) % Lymph # (Auto) 1.9 (1.2-4.9) X10*3/uL [place] # (Auto) 0.4 (0.1-1.2) X10*3/uL Eos # (Auto) 0.0 (0.0-0.4) X10*3/uL Baso # (Auto) 0.1 (0.0-0.2) X10*3/uL Abs Immat Gran (auto) 0.03 (0.00-0.03) X10*3/uL Absolute Neuts (auto) 9.2 H (2.0-8.3) x10*3/uL Absolute Nucleated RBC 0.000 (0.0-0.012) X10*3/uL Nucleated RBC % (auto) 0.0 (0.0-0.2) /100WBC PT 13.6 H (10.9-12.4) SEC INR 1.2 H (0.9-1.1) APTT 35.7 (26.0-36.8) SEC Sodium 143 (135-145) mmol/L Potassium 3.5 (3.3-5.1) mmol/L Chloride 113 H (96-108) mmol/L Carbon Dioxide 22 (22-29) mmol/L Anion Gap 12 (12-20) BUN 12 (9-16) mg/dL Creatinine 0.78 (0.5-1.4) mg/dL Estim Creat Clear Calc 99.8 Estimated GFR > 60 Random Glucose 88 (60-115) mg/dL Calcium 9.8 (8.4-10.2) mg/dL Total Bilirubin 2.3 H (0.0-1.0) mg/dL AST 23 (5-31) U/L ALT 18 (0-31) U/L Alkaline Phosphatase 99 (39-117) U/L Total Protein 8.0 (6.5-8.0) g/dL Albumin 4.6 (3.5-5.0) g/dL Lipase 14 (8-78) U/L Beta HCG, Quant < 2 mIU/mL Urine Color Dark Yellow Urine Appearance Cloudy Urine pH 5.5 (5.0-9.0) Ur Specific [place] >= 1.030 H (1.005-1.025) Urine Protein 30 (1+) H (Neg-Trace) mg/dL Urine Glucose (UA) Negative (Negative) mg/dL Urine Ketones 80 (Negative) mg/dL Urine Blood Negative (Negative) Urine Nitrite Negative (Negative) Ur Leukocyte Esterase Negative (Negative) Urine RBC 0-2 (0-2) /HPF Urine WBC 0-5 (0-5) /HPF Ur Squamous Epith Cells 3-5 (0-2) /HPF Urine Bacteria None Seen (None Seen) Hyaline Casts 6-10 (0-2) /LPF Urine Test NEGATIVE (NEGATIVE) Influenza Type A (PCR) NEGATIVE (Negative) Influenza Type B (PCR) NEGATIVE (Negative) RSV RNA Qual (PCR) NEGATIVE (Negative) SARS-CoV-2 RNA (RT-PCR) NEGATIVE (Negative) S. pyogenes GrpA PHU Negative (Negative) External Record Review External record reviewed: Prior outpatient labs Prescription Management I considered prescription management with: Pain Medication and Antibiotic Chronic Conditions Patient?s care impacted by: Other (PTSD, avoided coming to the hospital due to this) Critical Care Time Critical Care Time Critical Care Time: No Discharge Plan Discharge Clinical Impression: Nausea & vomiting Patient Disposition: Home, Self-Care Instructions: Acute Nausea and Vomiting (ED) Additional Instructions: Take your medications as prescribed. If you were prescribed antibiotics today, it is important that you take your medication to their entirety, do not skip any doses, do not finish them early. Follow-up with your primary care provider this week. Return to the emergency department with new or worsening symptoms. Such as fevers, chills, chest pain, shortness of breath, nausea, vomiting, dizziness, headache, vision changes, lethargy In case of emergency call 911 Prescriptions: New ondansetron HCl 4 mg tablet 4 mg PO Q8H PRN (Reason: nausea and vomiting) Qty: 14 0RF No Action Nexplanon 68 mg implant subdermal Referrals: Marizol Reilly MD [Primary Care Provider] - 2 days Stand Alone Forms: Work/School Release Interventions: ED Discharge Assessment Last Done: 03/12/24 18:19 Discharge Date/Time: 03/12/24 18:20 Print Language: Tajik
[2024-03-12 12:30] LABS: MANUAL DIFF FLAG NO
[2024-03-12 12:32] LABS: Basophils Absolute Auto 0.1 X10*3/uL (0.0-0.2); Basophils Percent Auto 0.4 % (0-2); Eosinophils Percent Auto 0.3 % (0-4); Hematocrit 44.2 % (37.0-47.0); Imm Gran Abs Auto 0.03 X10*3/uL (0.00-0.03); Imm Gran Pct Auto 0.3 % (0.0-0.4); Lymphocytes Absolute Auto 1.9 X10*3/uL (1.2-4.9); Lymphocytes Percent Auto 16.4 % (20-40); Mean Corpuscular HGB Conc 33.9 g/dl (31.0-35.0); Mean Corpuscular Hemoglobin 29.5 pg (27.0-33.0); Mean Corpuscular Volume 86.8 fL (80.0-98.0); Mean Platelet Volume 10.8 fL (9.4-12.3); Monocytes Absolute Auto 0.4 X10*3/uL (0.1-1.2); Monocytes Percent Auto 3.5 % (2-11); Neutrophils Absolute Auto 9.2 x10*3/uL (2.0-8.3); Neutrophils Percent Auto 79.1 % (45-73); Platelet Count 334 X10*3/uL (160-400); Red Blood Count 5.09 X10*6/uL (4.20-5.50); Red Cell Distribution Width 12.6 % (11.0-16.0); White Blood Count 11.6 X10*3/uL (4.8-10.8)
[2024-03-12 12:41] LABS: INTERNATIONAL NORM RATIO 1.2 (0.9-1.1); Prothrombin Time 13.6 SEC (10.9-12.4)
[2024-03-12 12:42] LABS: IDNOW Serial# 08D9AD1C; Strep A Nucleic Acid Negative (Negative)
[2024-03-12 12:43] LABS: Partial Thromboplastin Time 35.7 SEC (26.0-36.8)
[2024-03-12 12:55] LABS: Alanine Aminotransferase 18 U/L (0-31); Albumin Level 4.6 g/dL (3.5-5.0); Alkaline Phosphatase 99 U/L (39-117); Anion Gap 12 (12-20); Aspartate Amino Transferase 23 U/L (5-31); Bilirubin Total 2.3 mg/dL (0.0-1.0); Blood Urea Nitrogen 12 mg/dL (9-16); Calcium 9.8 mg/dL (8.4-10.2); Carbon Dioxide 22 mmol/L (22-29); Chloride 113 mmol/L (96-108); Creatinine Clr Calc Pharmacy 99.8; Estimated Glomerular Filt Rate > 60; Glucose Random 88 mg/dL (60-115); Lipase 14 U/L (8-78); Potassium 3.5 mmol/L (3.3-5.1); Sodium 143 mmol/L (135-145)
[2024-03-12 13:01] LABS: HCG Quantitative < 2 mIU/mL
[2024-03-12 13:14] LABS: Influenza A PCR NEGATIVE (Negative); Influenza B PCR NEGATIVE (Negative); Resp Syncy Virus RNA Qual PCR NEGATIVE (Negative); SARS COV2 PCR INHOUSE NEGATIVE (Negative)
--- NOTE | 2024-03-12 15:43 | PC.NURSE ---
PT was offered Zofran, she declined, stating she is nausea and vomiting but does not want this medication
[2024-03-12 15:49] LABS: Appearance Urine Cloudy; Color Urine Dark Yellow; Glucose Urine UA Negative (Negative); Leukocyte Esterase Urine Negative (Negative); Nitrite Urine Negative (Negative); PH 5.5 (5.0-9.0); Specific Gravity - Urine >= 1.030 (1.005-1.025); UMIC TRIGGER UACC YES; Urine Blood Negative (Negative); Urine Ketones 80 mg/dL (Negative); Urine Protein 30 (1+) mg/dL (Neg-Trace)
[2024-03-12 15:50] LABS: UPreg QC Valid YES; Urine Pregnancy NEGATIVE (NEGATIVE)
[2024-03-12 16:03] LABS: Bacteria Urine None Seen (None Seen); RBC Urine 0-2 /HPF (0-2); WBC Urine 0-5 /HPF (0-5)
[2024-03-12] MEDS: iohexoL 350 MG/ML 100 ML INFUS..BTL IV (16:13)
[2024-03-12 18:01] VITALS: BP 104/74; PULSE 71; RESP 18; TEMP 36.6; O2SAT 98
[2024-03-12 18:19] VITALS: BP 104/74; PULSE 71; RESP 18; TEMP 36.6; O2SAT 98
== END 2024-03-12 18:20 | disposition home or self-care (01) ==
PROVIDERS: Physician Assistant; Emergency Provider Emergency Medicine Emergency Medical Services; PCP Internal Medicine
DX: R11.2 Nausea with vomiting, unspecified (principal); R10.2 Pelvic and perineal pain; D64.9 Anemia, unspecified; R53.1 Weakness; Z03.818 Encounter for observation for suspected exposure to other biological agents ruled out; Z87.891 Personal history of nicotine dependence; Z79.899 Other long term (current) drug therapy
CPT/HCPCS: 0241U; 36415; 74177; 80053; 81001; 81025; 83690; 84702; 85025; 85610; 85730; 87651; 99283; 99284; Q9967

== ENCOUNTER → 2024-03-12 15:52 | Outpatient (BNV) | payer OTHER, SELFPAY | PROVIDERS: Emergency Provider Emergency Medicine Emergency Medical Services; PCP Internal Medicine; Visit Provider Radiology Diagnostic Radiology | DX: R10.9 Unspecified abdominal pain (principal) | CPT/HCPCS: 74177 ==

== ENCOUNTER 2024-03-14 20:53 | Emergency (ER) | payer OTHER, SELFPAY ==
[2024-03-14 20:56] VITALS: BP 119/74; PULSE 76; RESP 16; TEMP 36.7; O2SAT 98; BMI 26.4
[2024-03-14 21:17] LABS: MANUAL DIFF FLAG NO
[2024-03-14 21:23] LABS: Basophils Absolute Auto 0.1 X10*3/uL (0.0-0.2); Basophils Percent Auto 0.4 % (0-2); Eosinophils Absolute Auto 0.1 X10*3/uL (0.0-0.4); Eosinophils Percent Auto 0.4 % (0-4); Hematocrit 41.1 % (37.0-47.0); Hemoglobin 14.4 g/dl (12.0-16.0); Imm Gran Abs Auto 0.03 X10*3/uL (0.00-0.03); Imm Gran Pct Auto 0.3 % (0.0-0.4); Lymphocytes Absolute Auto 2.5 X10*3/uL (1.2-4.9); Lymphocytes Percent Auto 21.3 % (20-40); Mean Corpuscular Hemoglobin 29.9 pg (27.0-33.0); Mean Corpuscular Volume 85.3 fL (80.0-98.0); Mean Platelet Volume 10.8 fL (9.4-12.3); Monocytes Absolute Auto 0.6 X10*3/uL (0.1-1.2); Monocytes Percent Auto 4.6 % (2-11); Neutrophils Absolute Auto 8.7 x10*3/uL (2.0-8.3); Platelet Count 320 X10*3/uL (160-400); Red Blood Count 4.82 X10*6/uL (4.20-5.50); Red Cell Distribution Width 12.6 % (11.0-16.0); White Blood Count 11.9 X10*3/uL (4.8-10.8)
[2024-03-14 21:32] LABS: Alanine Aminotransferase 19 U/L (0-31); Albumin Level 4.5 g/dL (3.5-5.0); Alkaline Phosphatase 95 U/L (39-117); Anion Gap 13 (12-20); Aspartate Amino Transferase 26 U/L (5-31); Bilirubin Total 1.6 mg/dL (0.0-1.0); Blood Urea Nitrogen 11 mg/dL (9-16); Calcium 9.7 mg/dL (8.4-10.2); Carbon Dioxide 22 mmol/L (22-29); Chloride 110 mmol/L (96-108); Creatinine Clr Calc Pharmacy 111.9; Estimated Glomerular Filt Rate > 60; Glucose Random 97 mg/dL (60-115); Lipase 15 U/L (8-78); Potassium 3.3 mmol/L (3.3-5.1); Sodium 142 mmol/L (135-145); Total Protein 7.6 g/dL (6.5-8.0)
[2024-03-14 21:40] LABS: HCG Quantitative < 2 mIU/mL
--- NOTE | 2024-03-14 22:59 | PC.NURSE ---
pt in ED for abd pain and uncomfortable pt currently eating [place] on stretcher
[2024-03-14 23:32] VITALS: BP 99/72; PULSE 82; RESP 16; TEMP 36.5; O2SAT 96
[2024-03-14 23:41] LABS: Appearance Urine Clear; Color Urine Dark Yellow; Glucose Urine UA Negative (Negative); Leukocyte Esterase Urine Negative (Negative); Nitrite Urine Negative (Negative); PH 5.5 (5.0-9.0); Specific Gravity - Urine >= 1.030 (1.005-1.025); UMIC TRIGGER UACC YES; Urine Blood Trace (Negative); Urine Ketones 40 mg/dL (Negative); Urine Protein 30 (1+) mg/dL (Neg-Trace)
[2024-03-14 23:53] LABS: Bacteria Urine None Seen (None Seen); Hyaline Casts Urine >20 /LPF (0-2); RBC Urine 0-2 /HPF (0-2); WBC Urine 0-5 /HPF (0-5)
--- NOTE | 2024-03-15 00:14 | ED.ABDPAIN ---
HPI - Abdominal Pain General Chief Complaint: Abdominal Pain Stated Complaint: bloated/abd pain ? Time Seen by Provider: 03/15/24 00:10 Source: patient Mode of arrival: ambulatory Limitations: no limitations History of Present Illness ED Provider: HPI narrative: Patient's history of IBS, anxiety was seen here on 03/[address] scan of the abdomen was negative labs were stable been having watery diarrhea for last few days your nausea and vomiting no fever no chills patient today felt gas bubble in the abdomen that is why she came to the hospital Related Data Home Medications ?Medication ?Instructions ?Recorded ?Confirmed etonogestrel 68 mg subdermal implant subdermal 03/19/21 01/18/24 implant (Nexplanon) Previous Rx's ?Medication ?Instructions ?Recorded ondansetron HCl 4 mg tablet 4 mg PO Q8H PRN nausea and 03/12/24 vomiting #14 tabs dicyclomine 20 mg tablet 20 mg PO TID PRN Abdominal 03/15/24 Discomfort #20 tabs Allergies Allergy/AdvReac Type Severity Reaction Status Date / Time No Known Allergies Allergy Verified 03/14/24 21:00 Review of Systems Review of Systems Yes all other systems are reviewed and are negative PMFSH Past Medical History Medical History Ear infection Febrile seizures Deaf Obesity (BMI 30.0-34.9) Iron deficiency anemia Anxiety Surgical History No history of previous surgery Family History Family History Paternal Grandmother Diabetes mellitus HTN (hypertension) CVD (cardiovascular disease) Maternal Grandmother Diabetes mellitus HTN (hypertension) Skin cancer Father Diabetes mellitus HTN (hypertension) Maternal Aunt Diabetes mellitus HTN (hypertension) Breast CA Mother Thyroid disease Social History Social History Housing: Apartment Alcohol intake: never Patient Tobacco Use Status: Former Tobacco user Tobacco use type: Cigarette e-Cigarette/Vaping Use: Never Used Second Hand Smoke Exposure: No Advance Directives: No Do you have a plan to hurt others: No Plan service: No Current occupational status: employed Current occupational exposures/hazards: No Gender identity: Female Cognitive needs: No Hearing needs: No Vision needs: Yes Physical Exam ED Vital Signs: Vital Signs - 24 hr 03/14/24 20:56 03/14/24 23:32 Temperature 98.1 F 97.7 F Pulse Rate 76 82 Respiratory Rate 16 16 Blood Pressure 119/74 99/72 Pulse Oximetry 98 96 Oxygen Delivery Method Room Air Room Air BMI result Body Mass Index 26.4 Appearance: Alert. Oriented X3. No acute distress. Eyes: No pallor or icterus ENT: Pharynx normal. Oral Mucosa moist Neck: Normal inspection. Neck supple. CVS: Normal heart rate and rhythm. Pulses normal. Respiratory: No respiratory distress. Equal air entry bilateral, no wheezing/rales/rhonchi Abdomen: Soft and nontender. Bowel sounds are present, no mass palpable, no CVA tenderness Skin: Skin warm and dry. Normal skin color. Normal skin turgor. Extremities: No lower extremity edema. No calf tenderness Neuro: Oriented X 3. Medical Decision Making Medical Decision Making MDM Narrative: Patient with stable labs with chronic abdominal pain for years recent CT scan was negative been seen by garden center manager diagnose of the IBS advised to follow up with PCP/garden center manager prescribed dicyclomine Differential Diagnosis Differential Diagnoses: The differential diagnosis associated with the presentation includes /IBS gastroenteritis Lab Data MDM Lab Attestation statement: I reviewed the patient's lab results. 03/14/24 21:10 03/14/24 21:10 Labs: Lab Results 03/14/24 03/14/24 Range/Units 21:10 23:34 WBC 11.9 H (4.8-10.8) X10*3/uL RBC 4.82 (4.20-5.50) X10*6/uL Hgb 14.4 (12.0-16.0) g/dl Hct 41.1 (37.0-47.0) % MCV 85.3 (80.0-98.0) fL MCH 29.9 (27.0-33.0) pg MCHC 35.0 (31.0-35.0) g/dl RDW 12.6 (11.0-16.0) % Plt Count 320 (160-400) X10*3/uL MPV 10.8 (9.4-12.3) fL Immature Gran % (Auto) 0.3 (0.0-0.4) % Neut % (Auto) 73.0 (45-73) % Lymph % (Auto) 21.3 (20-40) % [place] % (Auto) 4.6 (2-11) % Eos % (Auto) 0.4 (0-4) % Baso % (Auto) 0.4 (0-2) % Lymph # (Auto) 2.5 (1.2-4.9) X10*3/uL [place] # (Auto) 0.6 (0.1-1.2) X10*3/uL Eos # (Auto) 0.1 (0.0-0.4) X10*3/uL Baso # (Auto) 0.1 (0.0-0.2) X10*3/uL Abs Immat Gran (auto) 0.03 (0.00-0.03) X10*3/uL Absolute Neuts (auto) 8.7 H (2.0-8.3) x10*3/uL Absolute Nucleated RBC 0.000 (0.0-0.012) X10*3/uL Nucleated RBC % (auto) 0.0 (0.0-0.2) /100WBC Sodium 142 (135-145) mmol/L Potassium 3.3 (3.3-5.1) mmol/L Chloride 110 H (96-108) mmol/L Carbon Dioxide 22 (22-29) mmol/L Anion Gap 13 (12-20) BUN 11 (9-16) mg/dL Creatinine 0.69 (0.5-1.4) mg/dL Estim Creat Clear Calc 111.9 Estimated GFR > 60 Random Glucose 97 (60-115) mg/dL Calcium 9.7 (8.4-10.2) mg/dL Total Bilirubin 1.6 H (0.0-1.0) mg/dL AST 26 (5-31) U/L ALT 19 (0-31) U/L Alkaline Phosphatase 95 (39-117) U/L Total Protein 7.6 (6.5-8.0) g/dL Albumin 4.5 (3.5-5.0) g/dL Lipase 15 (8-78) U/L Beta HCG, Quant < 2 mIU/mL Urine Color Dark Yellow Urine Appearance Clear Urine pH 5.5 (5.0-9.0) Ur Specific [place] >= 1.030 H (1.005-1.025) Urine Protein 30 (1+) H (Neg-Trace) mg/dL Urine Glucose (UA) Negative (Negative) mg/dL Urine Ketones 40 (Negative) mg/dL Urine Blood Trace H (Negative) Urine Nitrite Negative (Negative) Ur Leukocyte Esterase Negative (Negative) Urine RBC 0-2 (0-2) /HPF Urine WBC 0-5 (0-5) /HPF Ur Squamous Epith Cells 3-5 (0-2) /HPF Urine Bacteria None Seen (None Seen) Hyaline Casts >20 (0-2) /LPF Discharge Plan Discharge Clinical Impression: Irritable bowel syndrome Patient Disposition: Home, Self-Care Instructions: Irritable Bowel Syndrome (ED) Additional Instructions: Drink plenty of fluids Dicyclomine for abdominal cramp Follow up with your garden center manager/PCP Prescriptions: New dicyclomine 20 mg tablet 20 mg PO TID PRN (Reason: Abdominal Discomfort) Qty: 20 0RF No Action ondansetron HCl 4 mg tablet 4 mg PO Q8H PRN (Reason: nausea and vomiting) Qty: 14 0RF Nexplanon 68 mg implant subdermal Print Language: Japanese
[2024-03-15] MEDS: Dicyclomine HCl 10 MG CAPSULE 20 MG PO (00:44)
[2024-03-15 00:53] VITALS: BP 111/68; PULSE 69; RESP 18; TEMP 36.6; O2SAT 96
== END 2024-03-15 00:55 | disposition home or self-care (01) ==
PROVIDERS: Emergency Provider Internal Medicine; PCP Internal Medicine
DX: K58.9 Irritable bowel syndrome, unspecified (principal); Z87.891 Personal history of nicotine dependence
CPT/HCPCS: 36415; 80053; 81001; 83690; 84702; 85025; 99283

== ENCOUNTER 2024-03-19 12:33 | Outpatient (AMB) | payer OTHER, SELFPAY ==
[2024-03-19 12:51] VITALS: BP 118/80; BMI 27.3
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
== END 2024-03-19 13:10 | disposition home or self-care (01) ==
PROVIDERS: PCP Internal Medicine; Visit Provider Internal Medicine
DX: G44.52 New daily persistent headache (NDPH) (principal); S06.0XAA Concussion with loss of consciousness status unknown, initial encounter; M54.2 Cervicalgia; F41.9 Anxiety disorder, unspecified

== ENCOUNTER → 2024-03-19 12:33 | Outpatient (BNVA) | payer OTHER, SELFPAY | PROVIDERS: PCP Internal Medicine; Visit Provider Internal Medicine | DX: G44.52 New daily persistent headache (NDPH) (principal); M54.2 Cervicalgia; F41.9 Anxiety disorder, unspecified; S06.0XAA Concussion with loss of consciousness status unknown, initial encounter; X58.XXXA Exposure to other specified factors, initial encounter; Y93.9 Activity, unspecified; Y92.9 Unspecified place or not applicable; Y99.9 Unspecified external cause status | CPT/HCPCS: 99212 ==

== ENCOUNTER → 2024-04-13 09:43 | Outpatient (BNV) | payer OTHER, SELFPAY | PROVIDERS: PCP Internal Medicine; Visit Provider Radiology Diagnostic Radiology | DX: S06.0XAA Concussion with loss of consciousness status unknown, initial encounter (principal) | CPT/HCPCS: 70551 ==

== ENCOUNTER 2024-04-13 09:44 | Outpatient (REF) | payer OTHER, SELFPAY | END 2024-04-13 09:45 | disposition home or self-care (01) | LOC: HO.MRI 09:44 | PROVIDERS: PCP Internal Medicine; Visit Provider Internal Medicine | DX: G44.52 New daily persistent headache (NDPH) (principal); S06.0XAD Concussion with loss of consciousness status unknown, subsequent encounter | CPT/HCPCS: 70551 ==

== ENCOUNTER → 2024-05-10 12:42 | Outpatient (REF) | payer OTHER, SELFPAY ==
--- NOTE | 2024-05-10 12:46 | ECG_ITS ---
Test Reason : cp Blood Pressure : */* mmHG Vent. Rate : 95 BPM Atrial Rate : 95 BPM P-R Int : 152 ms QRS Dur : 72 ms QT Int : 346 ms P-R-T Axes : 60 52 36 degrees QTcB Int : 434 ms Normal sinus rhythm Normal ECG When compared with ECG of 03-Jun-2021 16:28, Nonspecific T wave abnormality no longer evident in Anterior leads Referred By: Marizol Pimentel Electronically Signed By: JONATAN GUTIERREZ MD
--- OUTSIDE RECORDS SUMMARY | 2024-05-10 14:16 | XMS_ITS | Clinical Summary ---
Author Organization [facility] ity Address [address] [place] [address] Care Team Providers Care Fitness And Wellness Instructor Name Role Phone Osman Lawrence MD Primary Care Provider [phone] Surgical History Surgery Date Site/Laterality Comments OTHER SURGICAL HISTORY PROCEDURE: DENIES PREVIOUS SURGERY Medical History Medical History Date Comments Conductive hearing loss DX:Condu ctive hearing loss; COMMENT: left ear Social History Tobacco Use Types Packs/Day Years Used Date Smoking Tobacco: Never Assessed Comments Unknown Sex and Gender Information Value Date Recorded Sex Assigned at Not on file Legal Sex Female 10:45 PM EST Gender Identity Not on file Sexual Orientation Not on file Obstetrics History Plan of Treatment Health Maintenance Due Date Last Done Comments DTaP,Tdap,and Td Vaccines (1 - Tdap) 02/12/2015 Hepatitis B Vaccines (1 of 3 - 19+ 3-dose series) 02/12/2015 Cervical Cancer Screening: P ap Smear 02/12/2017 COVID-19 Vaccine ( - 2023-2 5 season) 2023 Influenza Vaccine (#1) 2023 HIB Vaccines Aged Out No longer eligi ble based on patient's age to complete this topic HPV Vaccines Aged Out No longer eligi ble based on patient's age to complete this topic Hepatitis A Vaccines Aged Out No long er eligible based on patient's age to complete this topic IPV Vaccines Aged Out No longer eligi ble based on patient's age to complete this topic MMR Vaccines Aged Out No longer eligi ble based on patient's age to complete this topic Meningococcal ACWY Vaccine Aged Out N o longer eligible based on patient's age to complete this topic Meningococcal B Vacine Aged Out No lo nger eligible based on patient's age to complete this topic Pneumococcal Vaccine: Pediat rics (0 to 5 Years) and At-Risk Patients (6 to 64 Years) Aged Out No longer eligible b ased on patient's age to complete this topic RSV Immunization Patients Un tawana 20 months Aged Out No longer eligible b ased on patient's age to complete this topic Varicella Vaccines Aged Out No longer eligible based on patient's age to complete this topic Care Teams Fitness And Wellness Instructor Relationship Specialty Start Date End Date Osman Lawrence MD [address] [place] [address] [address] [facility] [place] [address] PCP - General Internal Medicine 03/09/19
[2024-05-10 16:26] LABS: HCG Quantitative 20297 mIU/mL
== END ==
LOC: HO.CARD 12:42
PROVIDERS: PCP Internal Medicine; Visit Provider Internal Medicine
DX: O26.899 Other specified pregnancy related conditions, unspecified trimester (principal); R07.9 Chest pain, unspecified; F43.10 Post-traumatic stress disorder, unspecified
CPT/HCPCS: 36415; 84702; 93005; 96127; 99212

== ENCOUNTER → 2024-05-10 12:46 | Outpatient (BNV) | payer OTHER, SELFPAY | PROVIDERS: PCP Internal Medicine; Visit Provider Internal Medicine Cardiovascular Disease | DX: R07.9 Chest pain, unspecified (principal) | CPT/HCPCS: 93010 ==

== ENCOUNTER 2024-05-10 13:54 | Outpatient (AMB) | payer OTHER, SELFPAY ==
[2024-05-10 13:56] VITALS: BP 118/78; PULSE 86; O2SAT 96; BMI 28.7
--- NOTE | 2024-05-10 13:56 | MHC.PC.OV ---
Vital Signs 05/10/24 13:56 Height 5 ft 3 in Weight 162 lb 2 oz BMI 28.7 BP 118/78 Blood Pressure Location Lt brachial Position Sitting Pulse 86 Pulse Source Pulse Oximeter Pulse Oximetry (%) 96 Oxygen Delivery Method Room Air Intake Visit Reasons: and medication Advice Escort Car Driver Required: No Accompanied by: Self / Same As Patient Allergies No Known Allergies Allergy (Verified 05/10/24 13:57) Medication List - Last Reconciled 05/10/24 by Estephania Parra PA-C vit no.[id number] 28 mg iron- 800 mcg (Classic ) 1 tab PO DAILY Tobacco use date assessed: 05/10/24 Dental Screening Dental Screen Date: 05/10/24 Did you have a dental visit in the last 12 months?: Yes Did you have a dental problem in the last 6 months where you did not have access to dental care?: No Was dental information given to patient?: Patient has dentist HPI and medication Advice HPI Details 29-year-old female with past medical history of headaches last seen 03/19/2024 coming in for acute problem. Presenting with the need for dental clearance to complete a root canal procedure, as she recently found out she is . She developed a dental abscess approximately one to one and a half months ago, leading to the initiation of a root canal that was subsequently interrupted due to a clerical scheduling mistake. After becoming aware of her , she informed her dental provider, who delayed the completion of the root canal until medical clearance is obtained. The patient recalls her first being challenging, marked by persistent nausea and discomfort. She has her first appointment with [facility] in mid June. [facility] Medical History Ear infection Febrile seizures Deaf Obesity (BMI 30.0-34.9) Iron deficiency anemia Anxiety Surgical History No history of previous surgery Family History Paternal Grandmother Diabetes mellitus HTN (hypertension) CVD (cardiovascular disease) Maternal Grandmother Diabetes mellitus HTN (hypertension) Skin cancer Father Diabetes mellitus HTN (hypertension) Maternal Aunt Diabetes mellitus HTN (hypertension) Breast CA Mother Thyroid disease Social History Housing: Apartment Alcohol intake: never Patient Tobacco Use Status: Former Tobacco user Tobacco use type: Cigarette e-Cigarette/Vaping Use: Never Used Second Hand Smoke Exposure: No service: No Current occupational status: employed Current occupational exposures/hazards: No Gender identity: Female Cognitive needs: No Hearing needs: No Vision needs: Yes Female Reproductive History Menstrual Age of Menarche: 12 Questionnaire PHQ-9 Over the last 2 weeks, how often have you been bothered by any of the following problems? 1. Little interest or pleasure in doing things: nearly every day 2. Feeling down, depressed, or hopeless: nearly every day 3. Trouble falling or staying asleep, or sleeping too much: not at all 4. Feeling tired or having little energy: nearly every day 5. Poor appetite or overeating: several days 6. Feeling bad about yourself - or that you are a failure or have let yourself or your family down: nearly every day 7. Trouble concentrating on things, such as reading the newspaper or watching television: several days 8. Moving or speaking so slowly that other people could have noticed. Or the opposite - being so fidgety or restless that you have been moving around a lot more than usual: not at all 9. Thoughts that you would be better off or of hurting yourself in some way: not at all Total score: 14 Depression Screening Interpretation: Positive Depression Screening Follow-up: Existing condition and Follow-up Visit Requested Depression Screening Done: Yes 10957 - PHQ-9 Billing: Yes Source: Developed by Drs. Bart Ford, Chyna Osorio, Antwon Santana and colleagues, with an educational rachel from [employer]. Thrive Questionnaire Date Thrive assessed: 05/10/24 I am a: Patient What is your living situation today?: I have a steady place to live Within the past 12 months, did the food you bought not last and you didn't have the money to get more?: Never true Within the past 12 months, did you worry whether your food would run out before you got money to buy more?: Never true Do you have trouble paying for medicines?: No Do you have trouble getting transportation to medical appointments?: No Do you have trouble paying your heating and electricity bill?: No Do you have trouble taking care of your child, family member or friend?: No Do you have trouble with day-to-day activities such as bathing, preparing meals, shopping, managing finances, etc.?: No Are you currently unemployed and looking for a job?: No Are you interested in more education?: No Please select the resources that you would like help with: None Currently or been in a relationship where the following occur: No concerns reported THRIVE Score: 0 AUDIT C Alcohol Use Questionnaire (AUDIT-C) 1. How often do you have a drink containing alcohol?: Never Total Score: 0 Score Reviewed/Action Taken: No ALY-7 AMB Questionnaire ALY-7 Date ALY - 7 assessed: 05/10/24 Feeling nervous, anxious, or on edge: 0 = Not at all Not being able to stop or control worryin = Not at all Worrying too much about different things: 0 = Not at all Trouble relaxin = Not at all Being so restless that it is hard to sit still: 0 = Not at all Becoming easily annoyed or irritable: 0 = Not at all Feeling afraid as if something awful might happen: 0 = Not at all Total ALY-7 score (0-4 normal; 5-9 mild; 10-14 moderate; 15-21 severe): 0 Source: Developed by Drs. Bart Ford, Chyna Osorio, Antwon Santana and colleagues, with an educational rachel from [employer]. Review of Systems Const Denies body aches, Denies chills, Denies fever(s), Denies headache(s) and Denies poor appetite Eyes Reports no additional complaints ENT Denies dizziness and Denies headache(s) Card Denies chest pain, Denies syncope, Denies edema, Denies irregular heart rhythm, Denies lightheadedness and Denies dyspnea Resp Denies cough and Denies dyspnea GI Denies abdominal pain, Denies constipation, Denies diarrhea, Denies nausea and Denies vomiting Reports no additional complaints Musc Reports no additional complaints and Denies abnormal gait Skin/Breast Reports system reviewed and no additional complaints, except as documented Neuro Denies abnormal gait, Denies dizziness, Denies syncope and Denies headache(s) Psych Reports no additional complaints Physical exam (Primary Care) Vital Signs: Last Vital Signs Pulse 86 05/10/24 13:56 BP 118/78 05/10/24 13:56 Pulse Ox 96 05/10/24 13:56 Oxygen Delivery Method Room Air 05/10/24 13:56 BMI result Body Mass Index 28.7 Tobacco/Smoking Status: Tobacco use Status Tobacco use date assessed 05/10/24 05/10/24 14:04 Patient Tobacco Use Status Former Tobacco user 05/10/24 14:04 Tobacco use type Cigarette 05/10/24 14:04 e-Cigarette/Vaping Use Never Used 05/10/24 14:04 PHQ-9: PHQ-9 Score PHQ-9: Total score 14 05/10/24 14:14 Depression Screening Interpretation: Positive Depression Screening Follow-up: Existing condition and Follow-up Visit Requested Thrive Assessment: Date of Thrive Assessment Date Thrive assessed 05/10/24 05/10/24 14:04 Currently or been in a relationship where the following occur: No concerns reported Const General: cooperative, healthy appearing, comfortable and no acute distress Orientation/consciousness: patient oriented x3 HENMT Head: Yes normocephalic Ears: hearing grossly normal bilaterally General nose exam: Normal external nose present Eyes General: appearance normal, both eyes and all related structures Conjunctivae: conjunctivae normal Neck Neck: Yes full ROM and Yes no lymphadenopathy Resp Effort & Inspection: normal respiratory effort Auscultation: clear to auscultation bilaterally, no crackles, no rales, no rhonchi and no wheezes Cardio Rate: regular rate Rhythm: regular rhythm Skin General skin exam: no rashes or lesions noted Neuro General: patient oriented x3 Gait exam (Neuro): Normal gait present Extrem General: Yes normal to inspection, Yes full ROM and No edema Psych Affect: normal affect Attitude: cooperative Insight: Good insight present (Psych) Judgement: Good judgement present (Psych) Coding Level of Care Code Est Pt Level 3 (61880) Diagnoses Z34.90 PTSD (post-traumatic stress disorder) F43.10 Additional Codes PHQ-9 - 78695 - PHQ-9 Billing: Yes ([id number]) Assessment & Plan Assessment & Plan (1) : Code(s): Z34.90 - Encounter for supervision of normal , unspecified, unspecified trimester Category: Medical Plan: Patient stating she has 3 positive at home tests. Ordered for blood work to confirm . She has a appointment mid June with her Ob for staging of her . vitamin sent today as well The management for this visit focused on assessing the feasibility of providing dental procedure clearance for the patient?s ongoing . I relayed to her that surgical clearance specifically related to is most often handled through obstetric/gynecologic specialists. I discussed with the patient if she is using a local anesthetic for the procedure she may proceed however if she is going to have any medications intravenously including but not limited to sedation or anesthesia she would need clearance through her OB office. I discussed this plan with Dr. Lawrence who is in agreement. (2) PTSD (post-traumatic stress disorder): Code(s): F43.10 - Post-traumatic stress disorder, unspecified Category: Medical Plan: Patient endorsing symptoms of anxiety and PTSD. She is declining referral to therapy or medical management at this time Plan This note was constructed using voice recognition software. While every effort has been made to ensure accuracy and senior electrical designer, still areas may have been included sometimes these areas may affect the content or meeting of the given symptoms. Total time spent caring for the patient today was 20 minutes. This includes time spent before the visit reviewing the chart, time spent during the visit, and time spent after the visit and documentation. Patient was informed and verbally consented to the use of an ambient scribe for clinic note documentation during this visit. Orders: Orders HCG Quantitative Today Z34.90 - Encounter for supervision of normal , unspecified, unspecified trimester Medications: New vit no.[id number] 28 mg iron- 800 mcg (Classic ) 1 tab PO DAILY 90 tabs 1RF
--- OUTSIDE RECORDS SUMMARY | 2024-05-10 15:34 | XMS_ITS | Clinical Summary ---
Author Organization [facility] ity Address [address] [place] [address] Care Team Providers Care Director Biology Name Role Phone Osman Lawrence MD Primary Care Provider [phone] Surgical History Surgery Date Site/Laterality Comments OTHER [...] age to complete this topic Care Teams Director Biology Relationship Specialty Start Date End Date Osman Lawrence MD [address] [place] [address] [address] [facility] [place] [address] PCP - General Internal Medicine 03/09/19
== END 2024-05-10 14:49 | disposition home or self-care (01) ==
PROVIDERS: PCP Internal Medicine
DX: Z34.90 Encounter for supervision of normal pregnancy, unspecified, unspecified trimester (principal); F43.10 Post-traumatic stress disorder, unspecified

== ENCOUNTER 2024-05-29 08:34 | Outpatient (AMB) | payer OTHER, SELFPAY ==
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
[2024-05-29 08:41] VITALS: BP 112/78; PULSE 78; O2SAT 97; BMI 28.7
== END 2024-05-29 10:23 | disposition home or self-care (01) ==
LOC: HO.HSMS 08:34
PROVIDERS: PCP Internal Medicine; Visit Provider Nurse Practitioner Family
DX: R56.00 Simple febrile convulsions (principal); S09.90XS Unspecified injury of head, sequela; R25.1 Tremor, unspecified; R40.4 Transient alteration of awareness; Z33.1 Pregnant state, incidental
CPT/HCPCS: 99204

== ENCOUNTER → 2024-05-29 08:34 | Outpatient (BNVA) | payer OTHER, SELFPAY | PROVIDERS: PCP Internal Medicine; Visit Provider Nurse Practitioner Family | DX: F07.81 Postconcussional syndrome (principal); Z34.91 Encounter for supervision of normal pregnancy, unspecified, first trimester; Z3A.08 8 weeks gestation of pregnancy; R25.1 Tremor, unspecified; R40.4 Transient alteration of awareness; R56.00 Simple febrile convulsions | CPT/HCPCS: 99202 ==

== ENCOUNTER 2024-06-20 08:38 | Outpatient (REF) | payer OTHER, SELFPAY ==
--- NOTE | 2024-06-20 08:41 | EEG_ITS ---
FINDINGS: This is a 16-channel EEG with an EKG lead. The patient is reported awake during the tracing. Background EEG rhythm is about 10 Hz 5-20 microvolt posteriorly low amplitude, fast anteriorly. Photic stimulation does not produce any significant abnormality. Hyperventilation is not performed. Cardiac lead does not reveal any significant abnormality. No sharp wave spikes or paroxysmal tendency noted. IMPRESSION: Unremarkable EEG. MD OLGA Munguia/TRE / [id number]
--- OUTSIDE RECORDS SUMMARY | 2024-06-20 09:11 | XMS_ITS | Clinical Summary ---
Author Organization [facility] ity Address [address] [place] [address] Care Team Providers Care Software Installer Name Role Phone Osman Lawrence MD Primary Care Provider [phone] Surgical History Surgery Date Site/Laterality Comments OTHER [...] Screening: P ap Smear 02/12/2017 COVID-19 Vaccine (2023-2 5 season) 2023 Influenza Vaccine (Season Ended) 2024 HIB Vaccines Aged Out No longer eligi [...] age to complete this topic Meningococcal B Vaccine Aged Out No l onger eligible based on patient's age to complete [...] age to complete this topic Care Teams Software Installer Relationship Specialty Start Date End Date Osman Lawrence MD [address] [place] [address] [address] [facility] [place] [address] PCP - General Internal Medicine 03/09/19
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
== END 2024-06-20 08:39 | disposition home or self-care (01) ==
LOC: HO.NEURO 08:38
PROVIDERS: PCP Internal Medicine; Visit Provider Nurse Practitioner Family
DX: R41.82 Altered mental status, unspecified (principal); R56.00 Simple febrile convulsions; R25.1 Tremor, unspecified
CPT/HCPCS: 95816

== ENCOUNTER 2024-09-03 08:58 | Outpatient (AMB) | payer OTHER, SELFPAY ==
--- OUTSIDE RECORDS SUMMARY | 2024-08-30 23:59 | XMS_ITS | Continuity of Care Document ---
Author Organization [facility] [employer] [facility] Address [address] [place] [address], [place], [place] [address]- Care Team Providers Care Ironmolder Name Role Phone Jed Pimentel MD, Marizol Wiley Primary Care Physician Encounter [facility] Date(s): 07/31/24 - 08/30/24 [facility] [employer] [address], [address] [place] [address] Encounter Type: Triage Allergies, Adverse Reactions, Alerts No Known Allergies Medications PNV By Mouth, Daily, 0 Refills, Maintenance, 06/28/24 8:34:00 AM EDT, Partial fill upon patient request if the prescription is for a schedule II opioid drug. Start Date: 06/28/24 Status: Ordered Repeat number: 1 Problem List Condition Confirmation Course Effective Dates [...] Reference Physician Member Role: PCP Address: [address] [place] [id number] Telecom: Care Team Related Persons Name: CINTHYA PAINTER Insurance Providers Guarantor name: NA Health Plan Information #: 1 Payer: [email or web address] Payer Identifier: NA Member Number: [id number] Group Number: [id number] Subscriber Identifier: [id number] Relationship to Subscriber: self Coverage Type: NA Coverage Verification Date: TESHA Telecom: TESHA Address: NA
--- OUTSIDE RECORDS SUMMARY | 2024-09-03 09:24 | XMS_ITS | Clinical Summary ---
Author Organization [facility] ity Address [address] [place] [address] Care Team Providers Care Lip Cutter Name Role Phone Osman Lawrence MD Primary Care Provider [phone] Surgical History Surgery Date Site/Laterality Comments OTHER [...] age to complete this topic Care Teams Lip Cutter Relationship Specialty Start Date End Date Osman Lawrence MD [address] [place] [address] [address] [facility] [place] [address] PCP - General Internal Medicine 03/09/19
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
[2024-09-03 10:16] VITALS: BP 90/60; PULSE 93; O2SAT 98
== END 2024-09-03 10:22 | disposition home or self-care (01) ==
LOC: HO.HSMS 08:58
PROVIDERS: PCP Internal Medicine; Visit Provider Nurse Practitioner Family
DX: R25.1 Tremor, unspecified (principal); R40.4 Transient alteration of awareness; F07.81 Postconcussional syndrome; R56.00 Simple febrile convulsions; Z33.1 Pregnant state, incidental
CPT/HCPCS: 99214

== ENCOUNTER → 2024-09-03 08:58 | Outpatient (BNVA) | payer OTHER, SELFPAY | PROVIDERS: PCP Internal Medicine; Visit Provider Nurse Practitioner Family | DX: F07.81 Postconcussional syndrome (principal); R25.1 Tremor, unspecified; Z34.90 Encounter for supervision of normal pregnancy, unspecified, unspecified trimester; R40.4 Transient alteration of awareness; R56.00 Simple febrile convulsions | CPT/HCPCS: 99212 ==

== ENCOUNTER 2024-09-23 14:33 | Outpatient (AMB) | payer OTHER, SELFPAY ==
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
[2024-09-23 14:36] VITALS: BP 102/60; BMI 32.8
--- OUTSIDE RECORDS SUMMARY | 2024-09-23 15:25 | XMS_ITS | Clinical Summary ---
Author Organization [facility] ity Address [address] [place] [address] Care Team Providers Care Problem Manager Name Role Phone Osman Lawrence MD Primary Care Provider [phone] Surgical History Surgery Date Site/Laterality Comments OTHER [...] Vaccine ( - 2023-2 5 season) 2023 Depression Screening 03/06/2024 Influenza Vaccine (#1) 2024 HIB Vaccines Aged Out No longer [...] 5 Years) and At-Risk Patients (6 to 49 Years) Aged Out No longer eligible b ased on patient's age to complete this topic RSV Immunization Patients Un tawana 20 months Aged Out No longer eligible b ased on patient's age to complete this topic Varicella Vaccines Aged Out No longer eligible based on patient's age to complete this topic Care Teams Problem Manager Relationship Specialty Start Date End Date Osman Lawrence MD [address] [place] [address] [address] [facility] [place] [address] PCP - General Internal Medicine 03/09/19
== END 2024-09-23 14:53 | disposition home or self-care (01) ==
LOC: HO.HMCH 14:34
PROVIDERS: PCP Internal Medicine; Visit Provider Internal Medicine
DX: R10.13 Epigastric pain (principal)

== ENCOUNTER → 2024-09-23 14:33 | Outpatient (BNVA) | payer OTHER, SELFPAY | PROVIDERS: PCP Internal Medicine; Visit Provider Internal Medicine | DX: R10.13 Epigastric pain (principal); O26.899 Other specified pregnancy related conditions, unspecified trimester | CPT/HCPCS: 96127; 99212 ==

== ENCOUNTER 2024-10-10 09:01 | Outpatient (RCR) | payer OTHER, SELFPAY ==
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
--- NOTE | 2024-10-10 09:53 | MHC.OT.DC ---
[address] [phone] F: [phone] Occupational Therapy Discharge Note Patient Name: Meggan Song Provider: Sonya Livingston Diagnosis: Post concussion syndrome Bilateral hand tremors Date of Evaluation: 09/12/24 Date of Discharge: 10/10/24 Treatments to Date: 6 Discharge Status: Achieved Goals Improved Function Independent with HEP Discharge Summary: Pt seen for final OT visit this date. Meggan has progressed well in OT with noted reduction in headache frequency and tremors. Sleep remains inconsistent, although she relates this more to versus head injury. She demonstrates ability to utilize both remedial and compensatory memory techniques and has been able to sustain full work shifts with improved tolerance to multi-tasking. She reports the tremors seem to happen when she is physically and emotionally overstimulated or overwhelmed. We discussed and trialed EFT tapping and breathing techniques for nervous system regulation which she was receptive to. At this time, pt. has met OT goals and is in agreement with discharge to home program. Thank you for this referral. Electronically Signed By: Krystle Crews, OTR/L Reviewed/agree with student documentation: Therapist: Please Sign and return to therapist, thank you for your referral.
== END 2024-10-10 09:54 | disposition home or self-care (01) ==
LOC: HO.OTS 09:01
PROVIDERS: PCP Internal Medicine; Visit Provider Nurse Practitioner Family
DX: R25.1 Tremor, unspecified (principal); F07.81 Postconcussional syndrome
CPT/HCPCS: 97166; 97530

== ENCOUNTER 2024-10-28 17:09 | Outpatient (AMB) | payer OTHER, SELFPAY ==
--- NOTE | 2024-10-28 17:11 | MHC.PC.OV ---
Vital Signs 10/28/24 17:12 Height 5 ft 3 in Weight 188 lb 4 oz BMI 33.3 BP 90/60 Blood Pressure Location Lt brachial Position Sitting Respiration 18 Pulse 88 Pulse Source Pulse Oximeter Temp 96.9 F Temp Source Temporal Artery Scan Pulse Oximetry (%) 97 Oxygen Delivery Method Room Air Intake Visit Reasons: annual Shank Stitcher Required: No Accompanied by: Self / Same As Patient Allergies No Known Allergies Allergy (Verified 10/28/24 17:21) Medication List - Last Reconciled 10/28/24 by Marizol Pimentel MD magnesium glycinate 200 mg (2 x 100 mg magnesium) PO BID 30 days vit no.[id number] 28 mg iron- 800 mcg (Classic ) 1 tab PO DAILY simethicone (Gas Relief (simethicone)) 125 mg PO BID PRN 90 days Tobacco use date assessed: 10/28/24 Dental Screening Dental Screen Date: 10/28/24 Did you have a dental visit in the last 12 months?: Yes Did you have a dental problem in the last 6 months where you did not have access to dental care?: No Was dental information given to patient?: Patient has dentist HPI HPI Comments History of Present Illness Details The patient is a 29-year-old female presenting for a physical examination. She has a history of major depressive disorder, which is currently mild in severity. The patient is 30 weeks and has been experiencing abdominal gas pain. Has a rash in right foot that is itchy. 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 Additionally, she reports a pruritic skin lesion on her right foot, for which a steroid cream was recommended. [facility] Medical History (Updated 10/28/24 @ 18:30 by Marizol Pimentel MD) Moderate recurrent major depression Ear infection Febrile seizures Deaf Obesity (BMI 30.0-34.9) Iron deficiency anemia Anxiety Surgical History No history of previous surgery Family History Paternal Grandmother Diabetes mellitus HTN (hypertension) CVD (cardiovascular disease) Maternal Grandmother Diabetes mellitus HTN (hypertension) Skin cancer Father Diabetes mellitus HTN (hypertension) Maternal Aunt Diabetes mellitus HTN (hypertension) Breast CA Mother Thyroid disease Social History Housing: Apartment Alcohol intake: never Patient Tobacco Use Status: Former Tobacco user Tobacco use type: Cigarette e-Cigarette/Vaping Use: Never Used Second Hand Smoke Exposure: No service: No Current occupational status: employed Current occupational exposures/hazards: No Gender identity: Female Cognitive needs: No Hearing needs: No Vision needs: Yes Female Reproductive History Menstrual Age of Menarche: 12 Questionnaire PHQ-9 Over the last 2 weeks, how often have you been bothered by any of the following problems? 1. Little interest or pleasure in doing things: several days 2. Feeling down, depressed, or hopeless: several days 3. Trouble falling or staying asleep, or sleeping too much: several days 4. Feeling tired or having little energy: nearly every day 5. Poor appetite or overeating: nearly every day 6. Feeling bad about yourself - or that you are a failure or have let yourself or your family down: nearly every day 7. Trouble concentrating on things, such as reading the newspaper or watching television: not at all 8. Moving or speaking so slowly that other people could have noticed. Or the opposite - being so fidgety or restless that you have been moving around a lot more than usual: not at all 9. Thoughts that you would be better off or of hurting yourself in some way: not at all Total score: 12 Depression Screening Interpretation: Positive Depression Screening Follow-up: Existing condition and Follow-up Visit Requested Depression Screening Done: Yes 62978 - PHQ-9 Billing: Yes Source: Developed by Drs. Bart Ford, Chyna Osorio, Antwon Santana and colleagues, with an educational rachel from [employer]. Thrive Questionnaire Date Thrive assessed: 10/28/24 AUDIT C Alcohol Use Questionnaire (AUDIT-C) 1. How often do you have a drink containing alcohol?: Never Total Score: 0 Score Reviewed/Action Taken: No ALY-7 AMB Questionnaire ALY-7 Date ALY - 7 assessed: 10/28/24 Feeling nervous, anxious, or on edge: 1 = Several days Not being able to stop or control worryin = Several days Worrying too much about different things: 1 = Several days Trouble relaxin = Several days Being so restless that it is hard to sit still: 1 = Several days Becoming easily annoyed or irritable: 1 = Several days Feeling afraid as if something awful might happen: 0 = Not at all Total ALY-7 score (0-4 normal; 5-9 mild; 10-14 moderate; 15-21 severe): 6 Source: Developed by Drs. Bart Ford, Chyna Osorio, Antwon Santana and colleagues, with an educational rachel from [employer]. ALY-7 Assessment Billing ALY-7 Assessment Tool: ALY-7 Assessment 49322 Review of Systems Const All systems reviewed & are unremarkable except as noted in HPI and below Card Denies chest pain at rest, Denies chest pain with activity, Denies edema, Denies irregular heart rhythm, Denies claudication, Denies dyspnea, Denies dyspnea on exertion, Denies orthopnea, Denies paroxysmal nocturnal dyspnea and Denies slow heart rate Resp Denies cough, Denies dyspnea and Denies dyspnea on exertion GI Denies abdominal pain, Denies change in bowel habits, Denies excessive flatus, Denies nausea and Denies vomiting Skin/Breast Denies bleeding lesions, Denies changing lesions and Denies rash Physical exam (Primary Care) Vital Signs: Last Vital Signs Temp 96.9 F 10/28/24 17:12 Pulse 88 10/28/24 17:12 Resp 18 10/28/24 17:12 BP 90/60 10/28/24 17:12 Pulse Ox 97 10/28/24 17:12 Oxygen Delivery Method Room Air 10/28/24 17:12 BMI result Body Mass Index 33.3 Tobacco/Smoking Status: Tobacco use Status Tobacco use date assessed 10/28/24 10/28/24 17:18 Patient Tobacco Use Status Former Tobacco user 10/28/24 17:12 Tobacco use type Cigarette 10/28/24 17:12 e-Cigarette/Vaping Use Never Used 10/28/24 17:12 PHQ-9: PHQ-9 Score PHQ-9: Total score 12 10/28/24 17:23 Depression Screening Interpretation: Positive Depression Screening Follow-up: Existing condition and Follow-up Visit Requested Thrive Assessment: Date of Thrive Assessment Date Thrive assessed 10/28/24 10/28/24 17:18 HENMT Head: Yes normal to inspection, Yes normocephalic and Yes atraumatic Ears: external ears normal Eyes General: appearance normal, both eyes and all related structures Eyelids: Yes eyelids normal Conjunctivae: conjunctivae normal Neck Neck: Yes normal visual inspection and Yes supple Resp Effort & Inspection: normal respiratory effort Auscultation: clear to auscultation bilaterally Cardio Jugular venous distension: no JVD Rate: regular rate Rhythm: regular rhythm Heart sounds: S1 normal heart sound present and S2 normal heart sound present GI Inspection: Yes normal to inspection Palpation (GI): Soft to palpation and nontender Auscultation: normal bowel sounds Skin General skin exam: no rashes or lesions noted Neuro General: no focal motor deficits Extrem General: Yes full ROM Psych Appearance: grossly normal Coding Level of Care Code Est Pt Level 3 (83623) Est Pt Prev Care 18-39y(94307) Diagnoses Physical exam Z00.00 Mild recurrent major depression F33.0 Rash R21 Additional Codes ALY-7 Assessment Billing - ALY-7 Assessment Tool: ALY-7 Assessment 37641 ([id number]) PHQ-9 - 62911 - PHQ-9 Billing: Yes ([id number]) Time Spent (min) 33 Assessment & Plan Assessment & Plan (1) Physical exam: Code(s): Z00.00 - Encounter for general adult medical examination without abnormal findings Category: Medical (2) Mild recurrent major depression: Code(s): F33.0 - Major depressive disorder, recurrent, mild Category: Medical (3) Rash: Code(s): R21 - Rash and other nonspecific skin eruption Category: Medical Plan Repeat in a year. Cream sent for the rash. Medications: New hydrocortisone 1% (Anti-Itch (hydrocortisone)) 1 appl topical TID PRN 28.4 grams 0RF skin irritation 2 weeks
[2024-10-28 17:12] VITALS: BP 90/60; PULSE 88; RESP 18; TEMP 36.1; O2SAT 97; BMI 33.3
--- OUTSIDE RECORDS SUMMARY | 2024-10-28 18:17 | XMS_ITS | Clinical Summary ---
Author Organization [facility] ity Address [address] [place] [address] Care Team Providers Care Finishing Machine Operator Automatic Name Role Phone Osman Lawrence MD Primary Care Provider [phone] Surgical History Surgery Date Site/Laterality Comments OTHER [...] age to complete this topic Care Teams Finishing Machine Operator Automatic Relationship Specialty Start Date End Date Osman Lawrence MD [address] [place] [address] [address] [facility] [place] [address] PCP - General Internal Medicine 03/09/19
== END 2024-10-28 18:03 | disposition home or self-care (01) ==
LOC: HO.HMCH 17:09
PROVIDERS: PCP Internal Medicine; Visit Provider Internal Medicine
DX: Z00.00 Encounter for general adult medical examination without abnormal findings (principal); F33.0 Major depressive disorder, recurrent, mild; R21 Rash and other nonspecific skin eruption

== ENCOUNTER → 2024-10-28 17:09 | Outpatient (BNVA) | payer OTHER, SELFPAY | PROVIDERS: PCP Internal Medicine; Visit Provider Internal Medicine | DX: Z00.00 Encounter for general adult medical examination without abnormal findings (principal); F33.0 Major depressive disorder, recurrent, mild; R21 Rash and other nonspecific skin eruption | CPT/HCPCS: 96127; 99212; 99395 ==